=== PATIENT | female | born 1970 | race Hispanic/Latino ===

== ENCOUNTER 2017-10-12 12:54 | Emergency (ER) | payer OTHER ==
[~2017-10-12 12:54] MED LIST: ALBUTEROL0.09 MG/A1 INH; ALEVE220 MG PO; AMOXIL500 MG PO; BACTRIM DS TAB1 EACH PO; FAMVIR 500MG500 MG PO; MEDROL DOSEPAK1 PAC PO; NASONEX0.05 MG/Ac NAS; TRAMADOL50 MG PO; ZANTAC150 MG PO
[2017-10-12 13:44] VITALS: BP 124/91
--- NOTE | 2017-10-12 13:50 | ED SKIN/ALLERGY COMPLAINT ---
History of Present Illness General Chief Complaint: General Adult Stated Complaint: PERSONAL ISSUE, SEEN HERE 10/10 Source: patient, old records Exam Limitations: no limitations Vital Signs & Intake/Output Vital Signs & Intake/Output Vital Signs Date Time Temp Pulse Resp B/P B/P Pulse O2 O2 Flow FiO2 Mean Ox Delivery Rate 10/12 1344 97.6 73 16 124/91 99 Room Air Allergies Coded Allergies: NO KNOWN ALLERGIES (10/12/17) Reconcile Medications Levothyroxine Sodium (Synthroid) 25 MCG TABLET 1 TAB PO DAILY AC THYROID ( Reported) Sulfamethoxazole/Trimethoprim (Bactrim Ds Tablet) 800 MG-160 MG TABLET 1 TAB PO BID cellulitis Triage Note: PT TOLD TO RETURN TO ED FOR WOUND RECHECK TO RIGHT GROIN. REPORTS COMPLIANCE WITH WARM SOAKS AND PO ABTS. DENIES FEVERS/CHILLS Triage Nurses Notes Reviewed? yes Onset: Gradual Duration: day(s): Timing: recent history Severity: moderate Location: genitalia HPI: 47YO FEMALE presents to ED for wound check. Patient seen and evaluated for cellulitis to right groin 2 days ago. She was started on Bactrim and instructed on warm compresses. Patient has been compliant with these instructions. She states redness has improved slightly however does feel a painful bump to her groin area that is persistent. Patient denies fevers, chills, abdominal pain, vomiting. (Evelyn Zambrano) Past History Travel History Traveled to [place] past 21 day No Medical History Any Pertinent Medical History? see below for history Respiratory: asthma Surgical History Surgical History: non-contributory Psychosocial History What is your primary language Nigerien Tobacco Use: Current Not Daily Daily Tobacco Use Amount/Type: =< 4 Cigarettes daily ETOH Use: occasional use Illicit Drug Use: denies illicit drug use Family History Hx Contributory? No (Evelyn Zambrano) Review of Systems Review of Systems Constitutional: Reports: no symptoms. EENTM: Reports: no symptoms. Respiratory: Reports: no symptoms. Cardiovascular: Reports: no symptoms. GI: Reports: no symptoms. Genitourinary: Reports: no symptoms. Musculoskeletal: Reports: no symptoms. Skin: Reports: see HPI. Neurological/Psychological: Reports: no symptoms. Hematologic/Endocrine: Reports: no symptoms. Immunologic/Allergic: Reports: no symptoms. All Other Systems: Reviewed and Negative (Evelyn Zambrano) Physical Exam Physical Exam General Appearance: well developed/nourished, no apparent distress, alert, awake Head: atraumatic, normal appearance Eyes: Bilateral: normal appearance. Ears, Nose, Throat: hearing grossly normal Neck: normal inspection, supple, full range of motion Respiratory: no respiratory distress Gastrointestinal: normal bowel sounds, soft, non-tender, no organomegaly Back: normal inspection, normal range of motion Extremities: normal inspection, normal range of motion Neurologic/Psych: awake, alert, oriented x 3 Skin: 8x4cm area of induration, warmth, erythema with small area of fluctuance (Evelyn Zambrano) Progress Differential Diagnosis: abscess/cellulitis, allergic reaction, contact dermatitis, syphilis/gonococcemia, urticaria Plan of Care: Small wheal placed with lidocaine for anesthesia and a small incision made with 11 blade scalpel. No purulent drainage, only blood was expressed. Patient's area of cellulitis has improved slightly since visit 2 days ago. Will continue antibiotics, warm compresses and initiate topical antibacterial cleanser. Patient to follow-up in 2-3 days for reevaluation of her cellulitis. She will return sooner with any worsening symptoms or concerns. The patient has no systemic symptoms of infection, afebrile, no abdominal pain or vomiting. The patient agrees with the plan of care. (Evelyn Zambrano) Departure Departure Disposition: HOME OR SELF CARE Condition: Stable Clinical Impression Primary Impression: Cellulitis Referrals: Kamini Kessler (PCP/Family) Additional Instructions: Begin Hibiclense topical fur dry cleaner in the shower once daily. Continue oral antibiotics. Continue warm compresses at least twice daily. Return in 2-3 days for wound check. Return sooner with worsening symptoms or concerns. Please note that there might be incidental findings in your evaluation that are unrelated to the current emergency department visit. Please notify your primary care doctor about this emergency department visit in order to obtain and review all of the testing performed so that these incidental findings can be monitored as needed. If you had an x-ray performed, please understand that some fractures may not be seen on the initial set of x-rays. If your symptoms persist you might need a repeat set of x-rays to check for such a fracture. If you had a laceration evaluated, please understand that foreign bodies such as glass or wood may not be visible to the naked eye or on plain x-rays. If the wound becomes red, swollen, increasingly more painful or if there is any drainage from the wound, please have it reevaluated by a physician for the possibility of a retained foreign body. If you're unable to follow up as outlined in the discharge instructions please return to the emergency department. Thank you for choosing the [facility] Emergency Department for your care. It was a pleasure to serve you today. Departure Forms: Customer Survey General Discharge Information (Kay VASQUEZ,Evelyn Murphy) PA/HOP WEIGHER Co-Sign Statement Statement: ED Attending supervision documentation- [] I saw and evaluated the patient. I have also reviewed all the pertinent lab results and diagnostic results. I agree with the findings and the plan of care as documented in the PA's/HOP WEIGHER's documentation. [x] I have reviewed the ED Record and agree with the PA's/HOP WEIGHER's documentation. [] Additions or exceptions (if any) to the PAs/HOP WEIGHER's note and plan are summarized below: [] (Mingo Garcia DO
[2017-10-12] MEDS ORDERED: SYNTHROID25 MCG PO (14:10)
== END 2017-10-12 14:23 ==
LOC: ERH 12:54
DX: Z48.00 Encounter for change or removal of nonsurgical wound dressing (principal)
CPT/HCPCS: J2001

== ENCOUNTER 2017-10-15 12:49 | Inpatient (IN) | payer OTHER ==
[~2017-10-15] VITALS: Ht 149.9 cm; Wt 62.6 kg
[~2017-10-15 12:49] MED LIST changes: +SYNTHROID25 MCG PO
--- NOTE | 2017-10-15 18:57 | ED SKIN/ALLERGY COMPLAINT ---
History of Present Illness General Chief Complaint: General Adult Stated Complaint: "ASKED TO COME BACK THURSDAY TO FINISH" Source: patient, old records Exam Limitations: no limitations Vital Signs & Intake/Output Vital Signs & Intake/Output Vital Signs Date Time Temp Pulse Resp B/P B/P Pulse O2 O2 Flow FiO2 Mean Ox Delivery Rate 10/19 0646 97.9 71 20 112/70 97 10/18 2149 98.1 62 18 108/78 97 Room Air 10/18 1514 98.1 63 18 116/74 99 Room Air ED Intake and Output 10/19 0000 10/18 1200 Intake Total 1250 500 Output Total Balance 1250 500 Intake, IV 450 Intake, Oral 800 500 Allergies Coded Allergies: levothyroxine (HIVES, ITCHING 10/15/17) Reconcile Medications Albuterol Sulfate (Proair Hfa) 90 MCG HFA.AER.AD 2 PUF INH AD PRN RESP. ( Reported) Budesonide/Formoterol Fumarate (Symbicort 160-4.5 Mcg Inhaler) 160 MCG-4.5 MCG/ ACTUATION HFA.AER.AD 2 PUF INH BID RESP. (Reported) Cetirizine HCl 10 MG TABLET 1 TAB PO QHS PRN ALLERGIES (Reported) Chlorhexidine Gluconate (Periogard) (Unknown Strength) MOUTHWASH (Unknown Dose ) PO 4XDAILY ABD (Reported) Fluticasone Propionate 50 MCG/ACTUATION SPRAY.SUSP 1 SPRAY NASB PRN ALLERGIES (Reported) Ibuprofen 600 MG TABLET 1 TAB PO TID PRN PAIN/INFLAMMATION (Reported) with food Levothyroxine Sodium (Synthroid) 25 MCG TABLET 1 TAB PO DAILY AC THYROID ( Reported) Selenium Sulfide 2.5 % SHAMPOO 1 PATRICIA TOP PRN SCALP (Reported) Sulfamethoxazole/Trimethoprim (Bactrim Ds Tablet) 800 MG-160 MG TABLET 1 TAB PO BID cellulitis Triage Note: PT TO ED FOR WOUND CHECK TO RIGHT GROIN AREA. PT HAS SEEN CHRISTINA EPPS THE LAST 2 TIMES, PT WOULD LIKE TO SEE HER AGAIN. Triage Nurses Notes Reviewed? yes Onset: Gradual Duration: day(s): Timing: recent history Severity: moderate Location: genitalia HPI: 47-year-old female presents emergency department for reevaluation of cellulitis to groin. Patient has been taking antibiotics as prescribed, she has been using warm compresses as instructed. Patient reports persistent pain, erythema since previous evaluation 3 days ago. Patient reports there is a small area of drainage as well. Patient believes erythema has worsened since previous visit. The patient denies abdominal pain, fevers, chills, nausea, vomiting. (Evelyn Zambrano) Past History Travel History Traveled to [place] past 21 day No Medical History Any Pertinent Medical History? see below for history Respiratory: asthma Endocrine: hypothyroidism Surgical History Surgical History: non-contributory Psychosocial History What is your primary language Upper Sorbian Tobacco Use: Current Not Daily ETOH Use: denies use Illicit Drug Use: denies illicit drug use Family History Hx Contributory? No (Evelyn Zambrano) Review of Systems Review of Systems Constitutional: Reports: no symptoms. EENTM: Reports: no symptoms. Respiratory: Reports: no symptoms. Cardiovascular: Reports: no symptoms. GI: Reports: no symptoms. Genitourinary: Reports: no symptoms. Musculoskeletal: Reports: no symptoms. Skin: Reports: see HPI. Neurological/Psychological: Reports: no symptoms. Hematologic/Endocrine: Reports: no symptoms. Immunologic/Allergic: Reports: no symptoms. All Other Systems: Reviewed and Negative (Evelyn Zambrano) Physical Exam Physical Exam General Appearance: well developed/nourished, no apparent distress, alert, awake Head: atraumatic, normal appearance Eyes: Bilateral: normal appearance. Ears, Nose, Throat: hearing grossly normal Neck: normal inspection, supple, full range of motion Respiratory: normal breath sounds, no respiratory distress, lungs clear Cardiovascular: regular rate/rhythm Gastrointestinal: normal bowel sounds, soft, non-tender, no organomegaly Back: normal inspection, normal range of motion Extremities: normal inspection, normal range of motion Neurologic/Psych: awake, alert, oriented x 3 Skin: 7x12cm area of erythema, warmth, tenderness, and induration to mons pubis area, mild purulent drainage present (Evelyn Zambrano) Progress Differential Diagnosis: abscess/cellulitis, anaphylaxis, contact dermatitis, shingles, urticaria Plan of Care: Orders Procedure Date/time Status COMPREHENSIVE METABOLIC PANEL 10/19 599 Active CBC WITHOUT DIFFERENTIAL 10/19 599 Active MISSING MEDICATION FORM 10/18 UNK Active Current Medications Sig/Maxine Start time Last Medication Dose Stop Time Status Admin Vancomycin HCl 1,250 MG BID 10/18 2200 AC 10/18 Dextrose/Water 250 ML 2138 (D5W) Amoxicillin/ 875 MG Q12 10/18 1538 AC 10/18 Clavulanate Potassium 2138 (Augmentin) Acetaminophen 1,000 MG Q6P PRN 10/17 1445 AC (Ofirmev) N/A 1 UNIT (No Carrier) Ondansetron HCl 4 MG Q6P PRN 10/16 1930 AC 10/17 (Zofran) 1156 Budesonide/ 2 PUF BID 10/16 1000 AC 10/18 Formoterol Fumarate 2139 (Symbicort) Nicotine 7 MG DAILY 10/16 1000 AC (Nicotine Cq) Levothyroxine Sodium 0.025 MG DAILY AC 10/16 0700 AC 10/19 (Synthroid) 0606 Heparin Sodium 5,000 UNIT Q8 10/16 0600 AC 10/19 (Porcine) 0606 Acetaminophen 650 MG Q6P PRN 10/16 0230 AC (Tylenol) Ibuprofen 600 MG Q6P PRN 10/16 0230 AC (Motrin) Laboratory Tests 10/19/17 0658: Sodium Pending, Potassium Pending, Chloride Pending, Carbon Dioxide Pending, Anion Gap Pending, BUN Pending, Creatinine Pending, BUN/Creatinine Ratio Pending , Glucose Pending, Calcium Pending, Total Bilirubin Pending, AST Pending, ALT Pending, Alkaline Phosphatase Pending, Total Protein Pending, Albumin Pending, Globulin Pending, Albumin/Globulin Ratio Pending, CBC w Diff Pending, WBC Pending, RBC Pending, Hgb Pending, Hct Pending, MCV Pending, MCH Pending, MCHC Pending, RDW Pending, Plt Count Pending, MPV Pending 10/18/17 0850: Vancomycin Trough 7.6 L This is the patient's third visit with worsening cellulitis. I started patient on Bactrim antibiotics 5 days ago. Patient returned and I &D was attempted 3 days ago without drainage of purulent material, only blood was drained. Patient cellulitis appears worse today. This patient has failed outpatient antibiotic therapy for her cellulitis. I discussed this patient with hospitalist Dr. Pravin cool general medicine admission for IV antibiotics given an cellulitis, possible general surgery consult, possible ID consult, premature discharge would be medically unsafe. Diagnostic Imaging: Viewed by Me: CT Scan. Discussed w/RAD: CT Scan. Radiology Impression: PATIENT: MARISSA GAMINO PRESENT AGE: 47 PATIENT ACCOUNT NO: [id number] : 68 LOCATION: [facility] ORDERING PHYSICIAN: Evelyn VASQUEZ SERVICE DATE: 10/15/17 EXAM TYPE: CAT - CT PELVIS W IV CONTRAST EXAMINATION: CT PELVIS WITH IV CONTRAST CLINICAL INFORMATION: Cellulitis of groin. COMPARISON: None TECHNIQUE: Helical scanning was performed with submillimeter collimation through the pelvis with 95 mL of Optiray 320 intravenous contrast. Sagittal and coronal multiplanar 2-D reconstructions were obtained. DLP: 201.35 mGy-cm FINDINGS: PELVIS: There is edema and thickening in the skin at the central lower pelvis. No abscess. No focal fluid collection. No air in the soft tissue. No intrapelvic abnormality. The abdominal muscle is normal. The visualized bowel loops are unremarkable. The appendix is normal. The uterus is anteverted. Hypodensity in the right adnexa right ovarian follicle or cyst measuring 3.7 x 2 x 2.3 cm. OSSEOUS STRUCTURES: Vacuum disc phenomenon L5-S1 with endplate spurring of the vertebrae. IMPRESSION : 1. Edema and skin thickening at the central anterior lower pelvis. No abscess. DICTATED BY: River Max MD DATE/TIME DICTATED:10/15/172302 BUILDING OPERATOR :TEGAN DATE/TIME TRANSCRIBED:10/15/172302 CONFIDENTIAL, DO NOT COPY WITHOUT APPROPRIATE AUTHORIZATION. <Electronically signed in Other Vendor System> SIGNED BY: River Max MD 10/15/17 0043 (Evelyn Zambrano) Departure Departure Disposition: STILL A PATIENT Condition: Stable Clinical Impression Primary Impression: Cellulitis Referrals: Kamini Kessler (PCP/Family) Departure Forms: Customer Survey General Discharge Information Admission Note Spoke With: Olman Garcia MD Documentation of Exam: Documentation of any treatments & extenuating circumstances including Concerns Regarding Discharge (functional status, medication knowledge or non-compliance, living conditions, etc.) that warrant an admission rather than observation: [ Cellulitis with failed outpatient antibiotic therapy, this patient requires IV antibiotics, possible ID consult, blood cultures, repeat labs, premature discharge could be medically unsafe] (Evelyn Zambrano) PA/APARTMENT COMMUNITY MANAGER Co-Sign Statement Statement: ED Attending supervision documentation- x I saw and evaluated the patient. I have also reviewed all the pertinent lab results and diagnostic results. I agree with the findings and the plan of care as documented in the PA's/APARTMENT COMMUNITY MANAGER's documentation. Failed outpatient antibiotic therapy [] I have reviewed the ED Record and agree with the PA's/APARTMENT COMMUNITY MANAGER's documentation. [] Additions or exceptions (if any) to the PAs/APARTMENT COMMUNITY MANAGER's note and plan are summarized below: [] (Brendon MITCHELL,Hesham) 10/15 2006 BLOOD: Blood Culture - RES 10/15 2006 BLOOD: Blood Culture - RES This is the patient's third visit with worsening cellulitis. I started patient on Bactrim antibiotics 5 days ago. Patient returned and I &D was attempted 3 days ago without drainage of purulent material, only blood was drained. Patient cellulitis appears worse today. This patient has failed outpatient antibiotic therapy for her cellulitis. I discussed this patient with hospitalist Dr. Pravin cool general medicine admission for IV antibiotics given an cellulitis, possible general surgery consult, possible ID consult, premature discharge would be medically unsafe. Diagnostic Imaging: Viewed by Me: CT Scan. Discussed w/RAD: CT Scan. Radiology Impression: PATIENT: MARISSA GAMINO PRESENT AGE: 47 PATIENT ACCOUNT NO: [id number] : 68 LOCATION: [facility] ORDERING PHYSICIAN: Evelyn VASQUEZ SERVICE DATE: 10/15/17 EXAM TYPE: CAT - CT PELVIS W IV CONTRAST EXAMINATION: CT PELVIS WITH IV CONTRAST CLINICAL INFORMATION: Cellulitis of groin. COMPARISON: None TECHNIQUE: Helical scanning was performed with submillimeter collimation through the pelvis with 95 mL of Optiray 320 intravenous contrast. Sagittal and coronal multiplanar 2-D reconstructions were obtained. DLP: 201.35 mGy-cm FINDINGS: PELVIS: There is edema and thickening in the skin at the central lower pelvis. No abscess. No focal fluid collection. No air in the soft tissue. No intrapelvic abnormality. The abdominal muscle is normal. The visualized bowel loops are unremarkable. The appendix is normal. The uterus is anteverted. Hypodensity in the right adnexa right ovarian follicle or cyst measuring 3.7 x 2 x 2.3 cm. OSSEOUS STRUCTURES: Vacuum disc phenomenon L5-S1 with endplate spurring of the vertebrae. IMPRESSION : 1. Edema and skin thickening at the central anterior lower pelvis. No abscess. DICTATED BY: River Max MD DATE/TIME DICTATED:10/15/172302 BUILDING OPERATOR :TEGAN DATE/TIME TRANSCRIBED:10/15/172302 CONFIDENTIAL, DO NOT COPY WITHOUT APPROPRIATE AUTHORIZATION. <Electronically signed in Other Vendor System> SIGNED BY: River Max MD 10/15/172312 Departure Departure Disposition: STILL A PATIENT Condition: Stable Clinical Impression Primary Impression: Cellulitis Referrals: Kamini Kessler (PCP/Family) Departure Forms: Customer Survey General Discharge Information Admission Note Spoke With: Jose MITCHELL,Olman Documentation of Exam: Documentation of any treatments & extenuating circumstances including Concerns Regarding Discharge (functional status, medication knowledge or non-compliance, living conditions, etc.) that warrant an admission rather than observation: [ Cellulitis with failed outpatient antibiotic therapy, this patient requires IV antibiotics, possible ID consult, blood cultures, repeat labs, premature discharge could be medically unsafe]
[2017-10-15] MEDS ORDERED: CETIRIZINE HCL10 M2 PO (19:52)
[2017-10-15] MEDS ORDERED: IBUPROFEN600 M1 PO (19:53)
[2017-10-15] MEDS ORDERED: FLUTICASONE PRO16 GM NASB (19:54)
[2017-10-15] MEDS ORDERED: SYMBICORT 16010.2 GM INH (19:54)
[2017-10-15] MEDS ORDERED: SELENIUM SULFI120 M1 TOP (19:55)
[2017-10-15] MEDS ORDERED: PROAIR HFA8.5 GM INH (19:55)
[2017-10-15] MEDS ORDERED: PERIOGARD473 ML PO (19:56)
[2017-10-15 20:31] LABS: ABSOLUTE BASOPHIL COUNT 0 /CUMM (0.0-0.2); ABSOLUTE EOSINOPHIL COUNT 0.1 /CUMM (0.0-0.7); ABSOLUTE GRANULOCYTE CT 4.9 /CUMM (1.4-6.5); ABSOLUTE LYMPH COUNT 2.4 /CUMM (1.2-3.4); ABSOLUTE MONOCYTE COUNT 0.6 /CUMM (0.10-0.60); BASOPHIL % 0.3 % (0.0-2.0); EOSINOPHIL % 1.9 % (0-5); GRANULOCYTE % 60.3 % (42.2-75.2); HEMATOCRIT 42.1 % (37-47); MEAN CORPUSCULAR HGB 30.9 PG (27.0-31.0); MEAN CORPUSCULAR HGB CONC 33.5 G/DL (33.0-37.0); MEAN CORPUSCULAR VOLUME 92.3 FL (81.0-99.0); MEAN PLATELET VOLUME 7.4 FL (7.4-10.4); PLATELET COUNT 360 /CUMM (130-400); RBC DISTRIBUTION WIDTH 14.3 % (11.5-14.5); RED BLOOD CELL CT 4.57 /CUMM (4.20-5.40); WHITE BLOOD CELL COUNT 8.1 /CUMM (4.8-10.8)
--- NOTE | 2017-10-15 23:13 | CT SCAN REPORT ---
EXAMINATION: CT PELVIS WITH IV CONTRAST CLINICAL INFORMATION: Cellulitis of groin. COMPARISON: None TECHNIQUE: Helical scanning was performed with submillimeter collimation through the pelvis with 95 mL of Optiray 320 intravenous contrast. Sagittal and coronal multiplanar 2-D reconstructions were obtained. DLP: 201.35 mGy-cm FINDINGS: PELVIS: There is edema and thickening in the skin at the central lower pelvis. No abscess. No focal fluid collection. No air in the soft tissue. No intrapelvic abnormality. The abdominal muscle is normal. The visualized bowel loops are unremarkable. The appendix is normal. The uterus is anteverted. Hypodensity in the right adnexa right ovarian follicle or cyst measuring 3.7 x 2 x 2.3 cm. OSSEOUS STRUCTURES: Vacuum disc phenomenon L5-S1 with endplate spurring of the vertebrae. IMPRESSION: 1. Edema and skin thickening at the central anterior lower pelvis. No abscess.
--- NOTE | 2017-10-16 03:39 | History & Physical ---
Nick Cyr 10/16/17 0339: General Information and HPI MD Statement: I have seen and personally examined MARISSA GAMINO and documented this H&P. The patient is a 47 year old F who presented with a patient stated chief complaint of [cellulitis]. Source of Information: patient, old records Exam Limitations: no limitations History of Present Illness: This is 47-year-old female with a medical history of asthma, hypothyroidism. Presented to the emergency department for further evaluation for her right pubic area cellulitis/abscess. Patient stated that 2 days before her first presentation to the emergency department on 10/10/2017 she shaved her pubic area and after that by 2 days she noticed redness Swelling and redness has been gradually increasing in that area and become very painful, worse when she walks or worse tight clothing. She was prescribed Bactrim. Patient retained to the emergency department 2 days after that for further evaluation as the lesion did not significantly improve and she was still complaining of pain I&D was attempted at that time and only bloody discharge coming out. She was discharged home to continue her antibiotic with warm compresses and topical antibacterial. The patient came back today as persistent pain with erythema. Patient reports there is a small area of drainage as well. She believes erythema has worsened since her previous visit to the emergency department. Patient also reports multiple episodes of diarrhea after she started taking the Bactrim that is now resolved, she also takes fluconazole for vaginitis. The patient denies abdominal pain, fevers, chills, nausea, vomiting, constipation, shortness breath, chest pain, heart racing, headaches, hematuria, dysuria, vaginal discharge. In the ED patient was started on IV vancomycin, IV Unasyn CT scan was done to evaluate for any underlying abscess and showed edema and skin thickening without any signs of abscess. Allergies/Medications Allergies: Coded Allergies: levothyroxine (HIVES, ITCHING 10/15/17) Home Med list Albuterol Sulfate (Proair Hfa) 90 MCG HFA.AER.AD 2 PUF INH AD PRN RESP. ( Reported) Budesonide/Formoterol Fumarate (Symbicort 160-4.5 Mcg Inhaler) 160 MCG-4.5 MCG/ ACTUATION HFA.AER.AD 2 PUF INH BID RESP. (Reported) Cetirizine HCl 10 MG TABLET 1 TAB PO QHS PRN ALLERGIES (Reported) Chlorhexidine Gluconate (Periogard) (Unknown Strength) MOUTHWASH (Unknown Dose ) PO 4XDAILY ABD (Reported) Fluticasone Propionate 50 MCG/ACTUATION SPRAY.SUSP 1 SPRAY NASB PRN ALLERGIES (Reported) Ibuprofen 600 MG TABLET 1 TAB PO TID PRN PAIN/INFLAMMATION (Reported) with food Levothyroxine Sodium (Synthroid) 25 MCG TABLET 1 TAB PO DAILY AC THYROID ( Reported) Selenium Sulfide 2.5 % SHAMPOO 1 PATRICIA TOP PRN SCALP (Reported) Sulfamethoxazole/Trimethoprim (Bactrim Ds Tablet) 800 MG-160 MG TABLET 1 TAB PO BID cellulitis Past History Travel History Traveled to [place] past 21 day No Medical History Blood Transfusion Hx: No Neurological: NONE EENT: NONE Cardiovascular: NONE Respiratory: asthma Gastrointestinal: NONE Hepatic: NONE Renal: NONE Musculoskeletal: NONE Psychiatric: NONE Endocrine: hypothyroidism Blood Disorders: NONE Cancer(s): NONE 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 BROTHER (Diabetes). . Psychosocial History Where do you live? Home Smoking Status: Current Some Day Smoker ETOH Use: denies use Illicit Drug Use: denies illicit drug use Functional Ability ADLs Independent: dressing, eating, toileting, bathing. Ambulation: independent IADLs Independent: shopping, housework, finances, food prep, telephone, transportation , medication admin. Review of Systems Review of Systems Constitutional: Reports: see HPI. Cardiovascular: Reports: see HPI. Respiratory: Reports: see HPI. GI: Reports: see HPI. Genitourinary: Reports: see HPI. Skin: Reports: see HPI. Exam & Diagnostic Data Last 24 Hrs of Vital Signs/I&O Vital Signs Date Time Temp Pulse Resp B/P B/P Pulse O2 O2 Flow FiO2 Mean Ox Delivery Rate 10/16 0044 98.7 69 18 114/69 100 10/15 2219 97.8 92 18 116/78 99 Room Air 10/15 1954 99.2 68 20 114/62 98 10/15 1255 96.7 80 20 104/70 98 Room Air Intake & Output 10/16 0800 10/16 0000 10/15 1600 Intake Total 0 Output Total Balance 0 Intake, Oral 0 Patient 138 lb 138 lb Weight Weight Reported by Patient Reported by Patient Measurement Method Physical Exam General Appearance Alert, Oriented X3, Cooperative, No Acute Distress Skin 1" x 2" erythema skin pump noted on the right pubic area, tender to touch, bbloody discharge noted, questionable pus HEENT PERRLA, EOMI Cardiovascular Regular Rate, Normal S1, Normal S2 Lungs Clear to Auscultation, Normal Air Movement Abdomen Normal Bowel Sounds, Soft, No Tenderness Extremities No Cyanosis, No Edema Last 24 Hrs of Labs/Matt: Laboratory Tests 10/15/172029: Urine Color YEL, Urine Clarity CLEAR, Urine pH 6.0, Ur Specific [place] >= 1.030 , Urine Protein NEG, Urine Ketones NEG, Urine Nitrite NEG, Urine Bilirubin NEG, Urine Urobilinogen 0.2, Ur Leukocyte Esterase NEG, Ur Microscopic SEDIMENT EXAMINED, Urine RBC FEW H, Urine WBC RARE, Ur Epithelial Cells FEW, Urine Bacteria RARE H, Urine Hemoglobin SMALL H, Urine Glucose NEG 10/15/172006: Anion Gap 12, Estimated GFR > 60, BUN/Creatinine Ratio 15.7, Glucose 83, Calcium 10.1, Total Bilirubin 0.5, AST 25, ALT 43, Alkaline Phosphatase 67, Total Protein 8.2, Albumin 4.8, Globulin 3.4, Albumin/Globulin Ratio 1.4, Total Beta HCG NEGATIVE, CBC w Diff NO MAN DIFF REQ, RBC 4.57, MCV 92.3, MCH 30.9, MCHC 33.5, RDW 14.3, MPV 7.4, Gran % 60.3, Lymphocytes % 30.0, Monocytes % 7.5, Eosinophils % 1.9, Basophils % 0.3, Absolute Granulocytes 4.9, Absolute Lymphocytes 2.4, Absolute Monocytes 0.6, Absolute Eosinophils 0.1, Absolute Basophils 0 Microbiology 10/15 2006 BLOOD: Blood Culture - RECD 10/15 2006 BLOOD: Blood Culture - RECD Diagnostic Data Other Results EXAMINATION: CT PELVIS WITH IV CONTRAST CLINICAL INFORMATION: Cellulitis of groin. COMPARISON: None TECHNIQUE: Helical scanning was performed with submillimeter collimation through the pelvis with 95 mL of Optiray 320 intravenous contrast. Sagittal and coronal multiplanar 2-D reconstructions were obtained. DLP: 201.35 mGy-cm FINDINGS: PELVIS: There is edema and thickening in the skin at the central lower pelvis. No abscess. No focal fluid collection. No air in the soft tissue. No intrapelvic abnormality. The abdominal muscle is normal. The visualized bowel loops are unremarkable. The appendix is normal. The uterus is anteverted. Hypodensity in the right adnexa right ovarian follicle or cyst measuring 3.7 x 2 x 2.3 cm. OSSEOUS STRUCTURES: Vacuum disc phenomenon L5-S1 with endplate spurring of the vertebrae. IMPRESSION: 1. Edema and skin thickening at the central anterior lower pelvis. No abscess. Assessment/Plan Assessment: This is 47-year-old female with a medical history of asthma, hypothyroidism. Presented to the emergency department for further evaluation for her right pubic area cellulitis/abscess. Problem list: -Right pubic cellulitis/abscess? Plan: -Admit patient to general medicine floor -Vitals every shift -Continue IV vancomycin and IV Unasyn for now -Gen. surgery consultation to assess for I&D's -Continue home medication of levothyroxine, Symbicort -Regular diet -Pain pathway -DVT prophylaxis subcutaneous heparin -Full code. As Ranked By This Provider Problem List: 1. Cellulitis Core Measures/Misc (05/10) Acute Coronary Syndrome ACS Diagnosis: No Congestive Heart Failure Congestive Heart Failure Diagnosis No Cerebrovascular Accident CVA/TIA Diagnosis: No VTE (View Protocol) VTE Risk Factors Acute Medical Illness No Mechanical VTE Prophylaxis d/t N/A MechProphylax Ordered No VTE Pharm Prophylaxis d/t NA PharmProphylax ordered Sepsis (View protocol) Sepsis Present: No Jose MITCHELL, [facility] 10/16/17 0357: Attending MD Review Statement Attending Statement Attending MD Statement: examined this patient, discuss w/resident/PA/NURSING SERVICES MANAGER, agreed w/resident/PA/NURSING SERVICES MANAGER, reviewed images, amended to note Attending Assessment/Plan: 47 yo F with h/o asthma, hypothyroidism, prediabetes, current smoker, was initially seen in ER on Oct 10 for is here for cellulitis of the pubic area and was prescribed Bactrim. She reports this probably started off from an ingrown hair during to her shaving her private area. She returned for evaluation on Oct 12, an I and D was done with only blood expressed. She was asked to continue antibiotics and warm compresses. However, her symptoms did not get better, erythema, swelling and pain worsened. She denies fever/ chills. She reports diarrhea while using bactrim and is also on fluconazole for vaginal yeast infection. Vitals stable. Right pubic area with diffuse erythema and focal swelling, very tender with bloody ?purulent discharge. Labs unremarkable. CT pelvis: edema and skin thickening at central anterior lower pelvis but no abscess. EKG: sinus rhythm, inferior ST changes. Assessment and plan: 1. Cellulitis with possible abscess of pubic/suprapubic area 2. Failed outpatient therapy 3. History of asthma and hypothyroidism 4. Prediabetes - Admit to General medicine - Panculture - IV Unasyn and Elenao for now - Surgery consult for possible I and D - Pain management with motrin, Percocet and IV morphine PRN - Smoking cessation counseling, nicotine patch - Resume home meds DVT ppx Lovenox. Full code.
--- NOTE | 2017-10-16 03:58 | Admission Certification ---
Admission Certification Certification Statement - As attending physician, I certify that at the time of - admission, based on clinical presentation, severity of - symptoms, need for further diagnostic testing and - therapeutic interventions, and risk of adverse outcomes - without in-hospital treatment, in my clinical assessment, - this patient requires an acute hospital stay for a minimum - of two nights or longer. I have also considered psychsocial - factors such as support system, advanced age, financial - issues, cognitive issues, and failed out-patient treatments, - past re-admission history, safety of patient, and lack of - compliance as applicable. Specific rationale supporting this admission is: Cellulitis with possible abscess of the pubic/suprapubic area, failed outpatient therapy.
--- NOTE | 2017-10-16 11:10 | Cons- General Surgery ---
General Information and HPI Consulting Request Date of Consult: 10/16/17 Requested By: Ninfa Whitten MD Reason for Consult: cellulitis with abscess History of Present Illness: Patient presents with first episode of severe folliculitis. She states this is her third visit to the ER for the same process. It has failed outpatient treatment with oral antibiotics. She notes the onset of pain and swelling a few days ago. There is been intermittent drainage. It is exquisitely tender. No fevers chills or sweats. Allergies/Medications Allergies: Coded Allergies: levothyroxine (HIVES, ITCHING 10/15/17) Home Med List: Albuterol Sulfate (Proair Hfa) 90 MCG HFA.AER.AD 2 PUF INH AD PRN RESP. ( Reported) Budesonide/Formoterol Fumarate (Symbicort 160-4.5 Mcg Inhaler) 160 MCG-4.5 MCG/ ACTUATION HFA.AER.AD 2 PUF INH BID RESP. (Reported) Cetirizine HCl 10 MG TABLET 1 TAB PO QHS PRN ALLERGIES (Reported) Chlorhexidine Gluconate (Periogard) (Unknown Strength) MOUTHWASH (Unknown Dose ) PO 4XDAILY ABD (Reported) Fluticasone Propionate 50 MCG/ACTUATION SPRAY.SUSP 1 SPRAY NASB PRN ALLERGIES (Reported) Ibuprofen 600 MG TABLET 1 TAB PO TID PRN PAIN/INFLAMMATION (Reported) with food Levothyroxine Sodium (Synthroid) 25 MCG TABLET 1 TAB PO DAILY AC THYROID ( Reported) Selenium Sulfide 2.5 % SHAMPOO 1 PATRICIA TOP PRN SCALP (Reported) Sulfamethoxazole/Trimethoprim (Bactrim Ds Tablet) 800 MG-160 MG TABLET 1 TAB PO BID cellulitis Past History Medical History Blood Transfusion Hx: No Neurological: NONE EENT: NONE Cardiovascular: NONE Respiratory: asthma Gastrointestinal: NONE Hepatic: NONE Renal: NONE Musculoskeletal: NONE Psychiatric: NONE Endocrine: hypothyroidism Blood Disorders: NONE Cancer(s): NONE 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 BROTHER (Diabetes). . Psychosocial History Where Do You Live? Home Smoking Status: Current Some Day Smoker ETOH Use: denies use Illicit Drug Use: denies illicit drug use Functional Ability ADLs Independent: dressing, eating, toileting, bathing. Ambulation: independent IADLs Independent: shopping, housework, finances, food prep, telephone, transportation , medication admin. Review of Systems Review of Systems: No fevers chills or sweats. No dyspnea no chest pain no abdominal pain remainder 12 points negative Exam & Diagnostic Data Vital Signs and I&O Vital Signs Date Time Temp Pulse Resp B/P B/P Pulse O2 O2 Flow FiO2 Mean Ox Delivery Rate 10/16 0637 98.7 86 18 106/63 100 10/16 0044 98.7 69 18 114/69 100 10/15 2219 97.8 92 18 116/78 99 Room Air 10/15 1954 99.2 68 20 114/62 98 10/15 1255 96.7 80 20 104/70 98 Room Air Intake & Output 10/16 1600 10/16 0800 10/16 0000 10/15 1600 10/15 0800 10/15 0000 Intake Total 842 0 Output Total Balance 842 0 Intake, IV 370 Intake, Oral 472 0 Patient 138 lb 138 lb Weight Weight Reported by Patient Reported by Patient Measurement Method Physical Exam: Gen.: She is normal body habitus ox her stated age no distress HEENT: Anicteric PERRL EOMI Abdomen: Soft nontender nondistended healed low midline scar without hernia In the suprapubic region there is erythema and induration. There is a 2 cm area of exophytic swelling and central fluctuance. Last 24 Hours of Labs: Laboratory Tests 10/15 Chemistry Sodium (137 - 145 mmol/L) 138 Potassium (3.5 - 5.1 mmol/L) 4.2 Chloride (98 - 107 mmol/L) 102 Carbon Dioxide (22 - 30 mmol/L) 24 Anion Gap (5 - 16) 12 BUN (7 - 17 mg/dL) 11 Creatinine (0.5 - 1.0 mg/dL) 0.7 Estimated GFR (>60 ml/min) > 60 BUN/Creatinine Ratio (7 - 25 %) 15.7 Glucose (65 - 99 mg/dL) 83 Calcium (8.4 - 10.2 mg/dL) 10.1 Total Bilirubin (0.2 - 1.3 mg/dL) 0.5 AST (14 - 36 U/L) 25 ALT (9 - 52 U/L) 43 Alkaline Phosphatase (<127 U/L) 67 Total Protein (6.3 - 8.2 g/dL) 8.2 Albumin (3.5 - 5.0 g/dL) 4.8 Globulin (1.9 - 4.2 gm/dL) 3.4 Albumin/Globulin Ratio (1.1 - 2.2 %) 1.4 Total Beta HCG (NEGATIVE) NEGATIVE Hematology CBC w Diff NO MAN DIFF REQ WBC (4.8 - 10.8 /CUMM) 8.1 RBC (4.20 - 5.40 /CUMM) 4.57 Hgb (12.0 - 16.0 G/DL) 14.1 Hct (37 - 47 %) 42.1 MCV (81.0 - 99.0 FL) 92.3 MCH (27.0 - 31.0 PG) 30.9 MCHC (33.0 - 37.0 G/DL) 33.5 RDW (11.5 - 14.5 %) 14.3 Plt Count (130 - 400 /CUMM) 360 MPV (7.4 - 10.4 FL) 7.4 Gran % (42.2 - 75.2 %) 60.3 Lymphocytes % (20.5 - 51.1 %) 30.0 Monocytes % (1.7 - 9.3 %) 7.5 Eosinophils % (0 - 5 %) 1.9 Basophils % (0.0 - 2.0 %) 0.3 Absolute Granulocytes (1.4 - 6.5 /CUMM) 4.9 Absolute Lymphocytes (1.2 - 3.4 /CUMM) 2.4 Absolute Monocytes (0.10 - 0.60 /CUMM) 0.6 Absolute Eosinophils (0.0 - 0.7 /CUMM) 0.1 Absolute Basophils (0.0 - 0.2 /CUMM) 0 Urines Urine Color (YEL,AMB,STR) YEL Urine Clarity (CLEAR) CLEAR Urine pH (5.0 - 8.0) 6.0 Ur Specific [place] (1.001 - 1.035) >= 1.030 Urine Protein (NEG,<30 MG/DL) NEG Urine Ketones (NEG) NEG Urine Nitrite (NEG) NEG Urine Bilirubin (NEG) NEG Urine Urobilinogen (0.1 - 1.0 EU/dl) 0.2 Ur Leukocyte Esterase (NEG) NEG Ur Microscopic SEDIMENT EXAMINED Urine RBC (0 - 5 /HPF) FEW H Urine WBC (0 - 2 /HPF) RARE Ur Epithelial Cells (NONE,FEW) FEW Urine Bacteria (NEG/NONE) RARE H Urine Hemoglobin (NEG) SMALL H Urine Glucose (N MG/DL) NEG Imaging Results: CT scan of the pelvis was personally reviewed. The images show no deep abscess Assessment/Plan Assessment/Plan 47-year-old woman with cellulitis and abscess related to folliculitis. Although the CT scan does not show a deep abscess there is clearly superficial one on the skin on examination. It will require incision and drainage at the bedside. Consult Acknowledgment - Thank you for your consult request.
--- NOTE | 2017-10-16 11:47 | PN- Att Addend ---
Attending Addendum Attending Brief Note Patient seen/examined bedside. Surgery consult noted, plan for incison and drainage, consider ID consult, failed o/p bactrim. Cont plan of care as per admitting physician. PE remarakble for erythema and induration in suprapubic area with swelling and likely from folliculitis. Admission Lab Results I reviewed the following labs: Laboratory Tests 10/15 Chemistry Sodium (137 - 145 mmol/L) 138 Potassium (3.5 - 5.1 mmol/L) 4.2 Chloride (98 - 107 mmol/L) 102 Carbon Dioxide (22 - 30 mmol/L) 24 Anion Gap (5 - 16) 12 BUN (7 - 17 mg/dL) 11 Creatinine (0.5 - 1.0 mg/dL) 0.7 Estimated GFR (>60 ml/min) > 60 BUN/Creatinine Ratio (7 - 25 %) 15.7 Glucose (65 - 99 mg/dL) 83 Calcium (8.4 - 10.2 mg/dL) 10.1 Total Bilirubin (0.2 - 1.3 mg/dL) 0.5 AST (14 - 36 U/L) 25 ALT (9 - 52 U/L) 43 Alkaline Phosphatase (<127 U/L) 67 Total Protein (6.3 - 8.2 g/dL) 8.2 Albumin (3.5 - 5.0 g/dL) 4.8 Globulin (1.9 - 4.2 gm/dL) 3.4 Albumin/Globulin Ratio (1.1 - 2.2 %) 1.4 Total Beta HCG (NEGATIVE) NEGATIVE Hematology CBC w Diff NO MAN DIFF REQ WBC (4.8 - 10.8 /CUMM) 8.1 RBC (4.20 - 5.40 /CUMM) 4.57 Hgb (12.0 - 16.0 G/DL) 14.1 Hct (37 - 47 %) 42.1 MCV (81.0 - 99.0 FL) 92.3 MCH (27.0 - 31.0 PG) 30.9 MCHC (33.0 - 37.0 G/DL) 33.5 RDW (11.5 - 14.5 %) 14.3 Plt Count (130 - 400 /CUMM) 360 MPV (7.4 - 10.4 FL) 7.4 Gran % (42.2 - 75.2 %) 60.3 Lymphocytes % (20.5 - 51.1 %) 30.0 Monocytes % (1.7 - 9.3 %) 7.5 Eosinophils % (0 - 5 %) 1.9 Basophils % (0.0 - 2.0 %) 0.3 Absolute Granulocytes (1.4 - 6.5 /CUMM) 4.9 Absolute Lymphocytes (1.2 - 3.4 /CUMM) 2.4 Absolute Monocytes (0.10 - 0.60 /CUMM) 0.6 Absolute Eosinophils (0.0 - 0.7 /CUMM) 0.1 Absolute Basophils (0.0 - 0.2 /CUMM) 0 Urines Urine Color (YEL,AMB,STR) YEL Urine Clarity (CLEAR) CLEAR Urine pH (5.0 - 8.0) 6.0 Ur Specific [place] (1.001 - 1.035) >= 1.030 Urine Protein (NEG,<30 MG/DL) NEG Urine Ketones (NEG) NEG Urine Nitrite (NEG) NEG Urine Bilirubin (NEG) NEG Urine Urobilinogen (0.1 - 1.0 EU/dl) 0.2 Ur Leukocyte Esterase (NEG) NEG Ur Microscopic SEDIMENT EXAMINED Urine RBC (0 - 5 /HPF) FEW H Urine WBC (0 - 2 /HPF) RARE Ur Epithelial Cells (NONE,FEW) FEW Urine Bacteria (NEG/NONE) RARE H Urine Hemoglobin (NEG) SMALL H Urine Glucose (N MG/DL) NEG
--- NOTE | 2017-10-16 15:05 | Cons- Infect Disease ---
General Information and HPI Consulting Request Date of Consult: 10/16/17 Requested By: Ninfa Whitten MD Reason for Consult: Suprapubic cellulitis/abscess Source of Information: patient, old records History of Present Illness: This is a 47-year-old woman with a history of asthma, hypothyroidism and a previous right back abscess, treated at [facility], seen in the emergency room 5 days prior to admission with a suprapubic cellulitis, found to be afebrile and discharged on Bactrim, seen 2 days later with persistent discomfort, again afebrile, with an attempt at an I&D unsuccessful, admitted on October 15 after returning to the emergency room with persistent pain and drainage. On admission she was afebrile. Laboratory data revealed a white blood cell count of 8000, BUN/creatinine 11 and 0.7, with normal liver enzymes. Urinalysis few RBCs/rare WBCs. CT of the pelvis revealed edema and skin thickening with no abscess. She was begun on Vancomycin and Unasyn and has remained afebrile since admission. She has been evaluated by Surgery, who plans to do an I&D at the bedside. At present she reports significant discomfort in the suprapubic area. Allergies/Medications Allergies: Coded Allergies: levothyroxine (HIVES, ITCHING 10/15/17) Home Med List: Albuterol Sulfate (Proair Hfa) 90 MCG HFA.AER.AD 2 PUF INH AD PRN RESP. ( Reported) Budesonide/Formoterol Fumarate (Symbicort 160-4.5 Mcg Inhaler) 160 MCG-4.5 MCG/ ACTUATION HFA.AER.AD 2 PUF INH BID RESP. (Reported) Cetirizine HCl 10 MG TABLET 1 TAB PO QHS PRN ALLERGIES (Reported) Chlorhexidine Gluconate (Periogard) (Unknown Strength) MOUTHWASH (Unknown Dose ) PO 4XDAILY ABD (Reported) Fluticasone Propionate 50 MCG/ACTUATION SPRAY.SUSP 1 SPRAY NASB PRN ALLERGIES (Reported) Ibuprofen 600 MG TABLET 1 TAB PO TID PRN PAIN/INFLAMMATION (Reported) with food Levothyroxine Sodium (Synthroid) 25 MCG TABLET 1 TAB PO DAILY AC THYROID ( Reported) Selenium Sulfide 2.5 % SHAMPOO 1 PATRICIA TOP PRN SCALP (Reported) Sulfamethoxazole/Trimethoprim (Bactrim Ds Tablet) 800 MG-160 MG TABLET 1 TAB PO BID cellulitis Past History Travel History Traveled to [place] past 21 day No Medical History Blood Transfusion Hx: No Neurological: NONE EENT: NONE Cardiovascular: NONE Respiratory: asthma Gastrointestinal: NONE Hepatic: NONE Renal: NONE Musculoskeletal: NONE Psychiatric: NONE Endocrine: hypothyroidism Blood Disorders: NONE Cancer(s): NONE RELIGION TEACHER/Reproductive: NONE Other Medical Hx: Right flank abscess at [facility] Isolation History: Standard Surgical History Surgical History: , breast reduction Family History Relations & Conditions If Any: MOTHER (Diabetes, hypertension). BROTHER (Diabetes). . Psychosocial History Where Do You Live? Home Smoking Status: Current Some Day Smoker ETOH Use: denies use Illicit Drug Use: denies illicit drug use Functional Ability ADLs Independent: dressing, eating, toileting, bathing. Ambulation: independent IADLs Independent: shopping, housework, finances, food prep, telephone, transportation , medication admin. Review of Systems Review of Systems All Other Systems: Reviewed and Negative Exam & Diagnostic Data Last 24 Hrs of Vital Signs/I&O Vital Signs Date Time Temp Pulse Resp B/P B/P Pulse O2 O2 Flow FiO2 Mean Ox Delivery Rate 10/16 1453 98.4 70 22 134/57 98 Room Air 10/16 0637 98.7 86 18 106/63 100 10/16 0044 98.7 69 18 114/69 100 10/15 2219 97.8 92 18 116/78 99 Room Air 10/15 1954 99.2 68 20 114/62 98 Intake & Output 10/16 1600 10/16 0800 10/16 0000 Intake Total 842 0 Output Total Balance 842 0 Intake, IV 370 Intake, Oral 472 0 Patient 138 lb Weight Weight Reported by Patient Measurement Method Physical Exam Other Physical Findings: Afebrile. She is awake and alert in no acute distress. Skin reveals no rash. HEENT negative. Neck is supple with no adenopathy. Lungs are clear. Heart regular rhythm with no murmur. Abdomen suprapubic erythema with a fluctuant area noted, with some drainage, exquisitely tender to palpation; positive bowel sounds. Back no CVA tenderness. Extremities no cyanosis, clubbing or edema. Neuro is without focality. Last 24 Hours of Lab Results: Laboratory Tests 10/15 Chemistry Sodium (137 - 145 mmol/L) 138 Potassium (3.5 - 5.1 mmol/L) 4.2 Chloride (98 - 107 mmol/L) 102 Carbon Dioxide (22 - 30 mmol/L) 24 Anion Gap (5 - 16) 12 BUN (7 - 17 mg/dL) 11 Creatinine (0.5 - 1.0 mg/dL) 0.7 Estimated GFR (>60 ml/min) > 60 BUN/Creatinine Ratio (7 - 25 %) 15.7 Glucose (65 - 99 mg/dL) 83 Calcium (8.4 - 10.2 mg/dL) 10.1 Total Bilirubin (0.2 - 1.3 mg/dL) 0.5 AST (14 - 36 U/L) 25 ALT (9 - 52 U/L) 43 Alkaline Phosphatase (<127 U/L) 67 Total Protein (6.3 - 8.2 g/dL) 8.2 Albumin (3.5 - 5.0 g/dL) 4.8 Globulin (1.9 - 4.2 gm/dL) 3.4 Albumin/Globulin Ratio (1.1 - 2.2 %) 1.4 Total Beta HCG (NEGATIVE) NEGATIVE Hematology CBC w Diff NO MAN DIFF REQ WBC (4.8 - 10.8 /CUMM) 8.1 RBC (4.20 - 5.40 /CUMM) 4.57 Hgb (12.0 - 16.0 G/DL) 14.1 Hct (37 - 47 %) 42.1 MCV (81.0 - 99.0 FL) 92.3 MCH (27.0 - 31.0 PG) 30.9 MCHC (33.0 - 37.0 G/DL) 33.5 RDW (11.5 - 14.5 %) 14.3 Plt Count (130 - 400 /CUMM) 360 MPV (7.4 - 10.4 FL) 7.4 Gran % (42.2 - 75.2 %) 60.3 Lymphocytes % (20.5 - 51.1 %) 30.0 Monocytes % (1.7 - 9.3 %) 7.5 Eosinophils % (0 - 5 %) 1.9 Basophils % (0.0 - 2.0 %) 0.3 Absolute Granulocytes (1.4 - 6.5 /CUMM) 4.9 Absolute Lymphocytes (1.2 - 3.4 /CUMM) 2.4 Absolute Monocytes (0.10 - 0.60 /CUMM) 0.6 Absolute Eosinophils (0.0 - 0.7 /CUMM) 0.1 Absolute Basophils (0.0 - 0.2 /CUMM) 0 Urines Urine Color (YEL,AMB,STR) YEL Urine Clarity (CLEAR) CLEAR Urine pH (5.0 - 8.0) 6.0 Ur Specific Mustang (1.001 - 1.035) >= 1.030 Urine Protein (NEG,<30 MG/DL) NEG Urine Ketones (NEG) NEG Urine Nitrite (NEG) NEG Urine Bilirubin (NEG) NEG Urine Urobilinogen (0.1 - 1.0 EU/dl) 0.2 Ur Leukocyte Esterase (NEG) NEG Ur Microscopic SEDIMENT EXAMINED Urine RBC (0 - 5 /HPF) FEW H Urine WBC (0 - 2 /HPF) RARE Ur Epithelial Cells (NONE,FEW) FEW Urine Bacteria (NEG/NONE) RARE H Urine Hemoglobin (NEG) SMALL H Urine Glucose (N MG/DL) NEG Last 24 Hours of Matt Results: Blood cultures October 15 negative Diagnostic Data Recent Imaging Findings: CT of the pelvis October 15 reveals edema and skin thickening at the central anterior lower pelvis with no abscess Assessment/Plan Assessment/Plan Impression: This is a 47-year-old woman with a history of a previous right back abscess, treated at [facility], admitted with persistent suprapubic inflammation despite 5 days of Bactrim, found to be afebrile with a normal white blood cell count and with a CT of the pelvis negative for any abscess. She does have a fluctuant, localized swelling in the suprapubic area, suggestive of a localized abscess, in addition to a surrounding cellulitis, and agree with Surgery that she would benefit from an I&D. Given her history of a previous abscess, the possibility of MRSA must be considered, though she has been on Bactrim for the past 5 days, which should have covered this organism. Unasyn may provide additional coverage, particularly for beta-hemolytic strep, as well as anaerobes and can be continued pending culture from the I&D. Suggestion: 1. Await I&D by Surgery 2. Follow-up the culture from the I&D 3. Decrease Unasyn to 1.5 g IV every 6 hours pending above 4. Continue Vancomycin pending above Melvi Hammond MD will be covering until October 26 Consult Acknowledgment - Thank you for your consult request.
--- NOTE | 2017-10-16 16:25 | Procedure ---
Minor Surgical Procedure Note Date of Procedure: 10/16/17 Procedure Note: After verbal consent, patient was sedated with 2 mg of IV Ativan. The abscess was prepped and draped. One percent lidocaine plain was used for local anesthesia. Patient was very intolerant to any kind of manipulation of the skin. This was primarily due to her severe anxiety. 2 small incisions were made over the fluctuance. Mostly bloody fluid was evacuated. Very little purulence was seen if any at all. One of the cavities extended approximately 2 cm in depth. There is no significant retained purulence. No culture was taken. Patient could not tolerate packing of the wound. I feel it is probably not necessary. Continue IV antibiotics.
[2017-10-16 17:25] VITALS: BP 125/58; BP 126/58
[2017-10-16 21:24] VITALS: BP 116/70
[2017-10-17 06:23] VITALS: BP 116/64
--- NOTE | 2017-10-17 10:26 | PN- General Surgery ---
Surgical Brief Attending Note Brief Attending Note: cellulitis improved. no recs.
--- NOTE | 2017-10-17 12:19 | PN- Housestaff ---
Wing Calderon 10/17/17 1219: Subjective Follow-up For: Inguinal abscess Complaints: no complaints Subjective: Reviewed the patient seated comfortably on the bed she reports to have slept well. She denies any fevers or chills overnight. She is reporting remarkable improvement in her groin area which was very tender yesterday. She reports feeling nauseated when she takes Percocet and do not like to take the medication anymore. Review of Systems Constitutional: Denies: chills, fever. Cardiovascular: Denies: chest pain, palpitations. Respiratory: Denies: cough, short of breath. Gastrointestinal: Reports: nausea. Denies: abdominal pain, vomiting. Genitourinary: Denies: no symptoms. Musculoskeletal: Denies: no symptoms. Objective Last 24 Hrs of Vital Signs/I&O Vital Signs Date Time Temp Pulse Resp B/P B/P Pulse O2 O2 Flow FiO2 Mean Ox Delivery Rate 10/17 1214 98.0 10/17 0623 97.8 62 20 116/64 96 10/16 2124 97.6 73 16 116/70 93 Room Air 10/16 1725 98.1 76 18 126/58 96 Room Air Room Air Intake & Output 10/17 1600 10/17 0800 10/17 0000 Intake Total 1250 Output Total 350 Balance 1250 -350 Intake, IV 450 Intake, Oral 800 Number 0 Bowel Movements Output, 350 Emesis Physical Exam General Appearance: Alert, Oriented X3, Cooperative, No Acute Distress Skin: No Rashes, INCised inguinal wound Skin Temp/Moisture Exam: Warm/Dry Sepsis Skin Exam (color): Normal for Ethnicity HEENT: Atraumatic, Mucous Membr. moist/pink Neck: Supple, No JVD Lungs: Clear to Auscultation, Normal Air Movement Abdomen: Normal Bowel Sounds, Soft, No Tenderness, Scar from abcess drained on the right groin Neurological: Normal Speech, Strength at 5/5 X4 Ext Extremities: No Clubbing, No Cyanosis, No Edema Current Medications: Current Medications Sig/Maxine Start time Last Medication Dose Route Stop Time Status Admin Acetaminophen 1,000 MG Q6P PRN 10/17 1445 AC N/A 1 UNIT IV Acetaminophen 650 MG Q6P PRN 10/16 0230 AC PO Ampicillin Sodium/ 1,500 MG Q6H 10/16 2030 AC 10/17 Sulbactam Sodium IV 1400 Sodium Chloride 100 ML Ampicillin Sodium/ 0 .STK-MED ONE 10/16 1514 DC Sulbactam Sodium .ROUTE Ampicillin Sodium/ 3,000 MG Q6H 10/16 0830 DC 10/16 Sulbactam Sodium IV 10/16 2029 1521 Sodium Chloride 100 ML Budesonide/ 2 PUF BID 10/16 1000 AC 10/17 Formoterol Fumarate INH 0954 Heparin Sodium 5,000 UNIT Q8 10/16 0600 AC 10/17 (Porcine) SC 1404 Ibuprofen 600 MG Q6P PRN 10/16 0230 AC PO Levothyroxine Sodium 0.025 MG DAILY AC 10/16 0700 AC 10/17 PO 0615 Lidocaine 0 .STK-MED ONE 10/16 1607 DC .ROUTE Lorazepam 2 MG ONE ONE 10/16 1615 DC 10/16 IV 10/16 1616 1621 Lorazepam 0 .STK-MED ONE 10/16 1607 DC .ROUTE Nicotine 7 MG DAILY 10/16 1000 AC TOP Ondansetron HCl 4 MG Q6P PRN 10/16 1930 AC 10/17 IV 1156 Oxycodone/ 0 .STK-MED ONE 10/16 1523 DC Acetaminophen PO Oxycodone/ 0 .STK-MED ONE 10/16 1522 DC Acetaminophen PO Oxycodone/ 2 TAB Q6P PRN 10/16 0230 DC 10/16 Acetaminophen PO 1522 Vancomycin HCl 1,000 MG BID 10/16 1000 AC 10/17 Dextrose/Water 250 ML IV 0953 Last 24 Hrs of Lab/Matt Results Last 24 Hrs of Labs/Mics: Laboratory Tests 10/17/17 1230: CBC w Diff NO MAN DIFF REQ, RBC 4.30, MCV 92.7, MCH 30.5, MCHC 32.9 L, RDW 14.1 , MPV 7.9, Gran % 54.2, Lymphocytes % 33.3, Monocytes % 10.1 H, Eosinophils % 1.9, Basophils % 0.5, Absolute Granulocytes 3.6, Absolute Lymphocytes 2.2, Absolute Monocytes 0.7 H, Absolute Eosinophils 0.1, Absolute Basophils 0 Microbiology 10/17 1504 TRUNK: Surveillance Culture - ORD 10/17 1451 UPPER RESP: Surveillance Culture - ORD 10/17 1432 TRUNK: Culture & Sensitivity - ORD 10/17 1432 TRUNK: Gram Stain - ORD 10/17 1432 UPPER RESP: Surveillance Culture - ORD Assessment/Plan Assessment: This is 47-year-old female with a medical history of asthma, hypothyroidism. Presented to the emergency department for further evaluation for her right pubic area cellulitis/abscess. Found to have pus accumulation and a harder incision and drainage by the surgical team. Right pubic cellulitis/abscess Patient started on IV vancomycin and Unasyn overnight the patient has remained afebrile. She reports significant improvement of pain around the incision site. So far blood cultures are negative Patient was seen by ID ux consultant and advised to continue with antibiotic but also to do MRSA some violence with samples from the nostril and groin area. We will check trough level vancomycin tomorrow at 9 AM. Continue with antibiotics. Hypothyroidism Patient is currently symptomatic Tinea with home dose levothyroxine 0.025 mg daily. Pain management Initially patient had severe pain but reports remarkable improvement after incision and drainage. She is citing nausea caused by Percocet and will hold Percocet and keep the patient on IV acetaminophen for severe pain. Continue with pain medication. DVT prophylaxis Heparin 5000 international units every 8 Problem List: 1. Cellulitis 2. Skin abscess Pain Ratin Pain Location: Inguinal area Pain Goal: Pain 4 or less Pain Plan: Tylenol or ibuprofen and IV tynelol Tomorrow's Labs & Rationales: Vancomycin trough level DVT/Prophylaxis: pharmacological Mamadou Daniels 10/17/17 1819: Attending MD Review Statement Attending Statement Attending MD Statement: examined this patient, discuss w/resident/PA/SOLID WASTE MANAGEMENT ENGINEER, agreed w/resident/PA/SOLID WASTE MANAGEMENT ENGINEER, reviewed EMR data (avail), discussed with nursing, discussed with case mgmt Attending Assessment/Plan: ID consult appreciated. cont current abx for now. will f/u on surveillance cultures.
[2017-10-17 14:06] LABS: ABSOLUTE BASOPHIL COUNT 0 /CUMM (0.0-0.2); ABSOLUTE EOSINOPHIL COUNT 0.1 /CUMM (0.0-0.7); ABSOLUTE GRANULOCYTE CT 3.6 /CUMM (1.4-6.5); ABSOLUTE LYMPH COUNT 2.2 /CUMM (1.2-3.4); ABSOLUTE MONOCYTE COUNT 0.7 /CUMM (0.10-0.60); BASOPHIL % 0.5 % (0.0-2.0); EOSINOPHIL % 1.9 % (0-5); GRANULOCYTE % 54.2 % (42.2-75.2); HEMATOCRIT 39.9 % (37-47); MEAN CORPUSCULAR HGB 30.5 PG (27.0-31.0); MEAN CORPUSCULAR HGB CONC 32.9 G/DL (33.0-37.0); MEAN CORPUSCULAR VOLUME 92.7 FL (81.0-99.0); MEAN PLATELET VOLUME 7.9 FL (7.4-10.4); PLATELET COUNT 294 /CUMM (130-400); RBC DISTRIBUTION WIDTH 14.1 % (11.5-14.5); WHITE BLOOD CELL COUNT 6.6 /CUMM (4.8-10.8)
--- NOTE | 2017-10-17 14:06 | PN- Infect Dx ---
Subjective Subjective: No fever; abd discomfort, SS drainage (scant) at the site of the I&D (no cx obtained) Review of Systems Comments: 12 points reviewed as noted, otherwise negative. Objective Last 24 Hrs of Vital Signs/I&O Vital Signs Date Time Temp Pulse Resp B/P B/P Pulse O2 O2 Flow FiO2 Mean Ox Delivery Rate 10/17 1214 98.0 10/17 0623 97.8 62 20 116/64 96 10/16 2124 97.6 73 16 116/70 93 Room Air 10/16 1725 98.1 76 18 126/58 96 Room Air Room Air 10/16 1453 98.4 70 22 134/57 98 Room Air Intake & Output 10/17 1600 10/17 0800 10/17 0000 Intake Total Output Total 350 Balance -350 Output, 350 Emesis Physical Exam Other Physical Findings: Afebrile. She is awake and alert in no acute distress. Skin reveals no rash. HEENT negative. Neck is supple with no adenopathy. Lungs are clear. Heart regular rhythm with no murmur. Abdomen suprapubic w/ much improved erythema and tenderness to palpation; dressing in place at the I&D site; positive bowel sounds. Back no CVA tenderness. Extremities no cyanosis, clubbing or edema. Neuro is without focality. Results Last 24 Hours of Lab Results: Laboratory Tests 10/17 1230 Hematology CBC w Diff Pending WBC Pending RBC Pending Hgb Pending Hct Pending MCV Pending MCH Pending MCHC Pending RDW Pending Plt Count Pending MPV Pending Last 24 Hours of Matt Results: SPEC #: [id number] NEELA: 10/15/17 STATUS: RES RECD: 10/15/17 [facility] DR: Evelyn Zambrano SOURCE: BLOOD ENTR: 10/15/[address] [facility] [address]: Kamini Kessler SPDESC: 2ND/VENOUS ORDERED: BLOOD CULTURE Procedure Result > BLOOD CULTURE REPORT Preliminary 10/16/17 No growth after 1 day incubation. Specimen is examined continuously for 5 days before final report unless culture becomes positive. Recent Imaging Studies: FINDINGS: PELVIS: There is edema and thickening in the skin at the central lower pelvis. No abscess. No focal fluid collection. No air in the soft tissue. No intrapelvic abnormality. The abdominal muscle is normal. The visualized bowel loops are unremarkable. The appendix is normal. The uterus is anteverted. Hypodensity in the right adnexa right ovarian follicle or cyst measuring 3.7 x 2 x 2.3 cm. OSSEOUS STRUCTURES: Vacuum disc phenomenon L5-S1 with endplate spurring of the vertebrae. IMPRESSION: 1. Edema and skin thickening at the central anterior lower pelvis. No abscess. DICTATED BY: River Max MD DATE/TIME DICTATED:10/15/172302 [employer] LIEUTENANT:TEGAN DATE/TIME TRANSCRIBED:10/15/172302 Assessment/Plan ID Impression: This is a 47-year-old woman with a history of a previous right back abscess, treated at [facility], admitted with persistent suprapubic cellulitis, failing treatment with oral Bactrim (received for 5 d). She is afebrile, with a normal white blood cell count and with a CT of the pelvis negative for abscess. Given her history of a previous abscess, the possibility of MRSA must be considered; Unasyn added for additional coverage, particularly for beta- hemolytic Strep and anaerobes. Suggestion: 1. Obtain nasal and inguinal MRSA surv cx. If negative plan to d/c iv Vancomycin. 2. Cont Unasyn to 1.5 g IV every 6 hours and iv Vancomycin pending above; vancomycin trough 30 min before next dose 10/18. Goal vancomycin trough 10-15.
[2017-10-17 15:03] VITALS: BP 100/76
[2017-10-18 06:47] VITALS: BP 118/84
--- NOTE | 2017-10-18 08:18 | PN- Housestaff ---
Medhat Roy MD,Ami 10/18/17 0818: Subjective Follow-up For: Pubic cellulitis/abscess Subjective: Patient visited today, was sitting at the bedside comfortably in no acute distress, was alert and oriented. Examined in presence of nurse. I and D performed, currently significant improvement in erythema and swelling. No fever or chills, no shortness of breathing, no chest pain, no other events. Increased the dose of vancomycin, and changed Unasyn to by mouth Augmentin. Review of Systems Constitutional: Reports: see HPI. Objective Last 24 Hrs of Vital Signs/I&O Vital Signs Date Time Temp Pulse Resp B/P B/P Pulse O2 O2 Flow FiO2 Mean Ox Delivery Rate 10/18 1514 98.1 63 18 116/74 99 Room Air 10/18 0647 98.6 60 20 118/84 96 Intake & Output 10/18 1600 10/18 0800 10/18 0000 Intake Total 1250 500 Output Total Balance 1250 500 Intake, IV 450 Intake, Oral 800 500 Physical Exam General Appearance: Alert, Oriented X3, Cooperative, No Acute Distress Skin: improved swelling and redness of the pubic cellulitis/abscess Skin Temp/Moisture Exam: Warm/Dry Sepsis Skin Exam (color): Normal for Ethnicity HEENT: Atraumatic, EOMI, Mucous Membr. moist/pink Cardiovascular: Regular Rate, Normal S1, Normal S2 Lungs: Clear to Auscultation, Normal Air Movement Abdomen: Soft, No Tenderness Neurological: Normal Speech Extremities: No Edema Current Medications: Current Medications Sig/Maxine Start time Last Medication Dose Route Stop Time Status Admin Acetaminophen 650 MG .STK-MED ONE 10/17 2204 DC PO 10/17 2206 Acetaminophen 1,000 MG Q6P PRN 10/17 1445 AC N/A 1 UNIT IV Acetaminophen 650 MG Q6P PRN 10/16 0230 AC PO Amoxicillin/ 875 MG Q12 10/18 1538 AC Clavulanate Potassium PO Ampicillin Sodium/ 1,500 MG Q6H 10/16 2030 DC 10/18 Sulbactam Sodium IV 1407 Sodium Chloride 100 ML Budesonide/ 2 PUF BID 10/16 1000 AC 10/18 Formoterol Fumarate INH 0911 Heparin Sodium 5,000 UNIT Q8 10/16 0600 AC 10/18 (Porcine) SC 1407 Ibuprofen 600 MG Q6P PRN 10/16 0230 AC PO Levothyroxine Sodium 0.025 MG DAILY AC 10/16 0700 AC 10/18 PO 0525 Nicotine 7 MG DAILY 10/16 1000 AC TOP Ondansetron HCl 4 MG Q6P PRN 10/16 1930 AC 10/17 IV 1156 Vancomycin HCl 1,250 MG BID 10/18 2200 AC Dextrose/Water 250 ML IV Vancomycin HCl 1,000 MG BID 10/16 1000 AC 10/18 Dextrose/Water 250 ML IV 10/18 2159 1012 Last 24 Hrs of Lab/Matt Results Last 24 Hrs of Labs/Mics: Laboratory Tests 10/18/17 0850: Vancomycin Trough 7.6 L Assessment/Plan Assessment: This is 47-year-old female with a medical history of asthma, hypothyroidism. Presented to the emergency department for further evaluation for her right pubic area cellulitis/abscess. Found to have pus accumulation and a harder incision and drainage by the surgical team. Right pubic cellulitis/abscess Patient started on IV vancomycin and Unasyn overnight the patient has remained afebrile. She reports significant improvement of pain around the incision site. So far blood cultures are negative Patient was seen by ID compliance consultant and advised to continue with antibiotic but also to do MRSA some violence with samples from the nostril and groin area. Continue with antibiotics. - Augmentin PO - IV vanc increased to 1.25 Hypothyroidism Patient is currently symptomatic Tinea with home dose levothyroxine 0.025 mg daily. Pain management Initially patient had severe pain but reports remarkable improvement after incision and drainage. She is citing nausea caused by Percocet and will hold Percocet and keep the patient on IV acetaminophen for severe pain. -Continue with pain medication. DVT prophylaxis, Heparin and ALPS Problem List: 1. Cellulitis 2. Skin abscess Pain Ratin Pain Location: Pubic area with touch, not at time of interview Pain Goal: Pain 4 or less Pain Plan: Continue current plan Tomorrow's Labs & Rationales: CBC BEP Mamadou Daniels 10/18/17 1642: Attending MD Review Statement Attending Statement Attending MD Statement: examined this patient, discuss w/resident/PA/JOB PRESS OPERATOR, agreed w/resident/PA/JOB PRESS OPERATOR, reviewed EMR data (avail), discussed with nursing Attending Assessment/Plan: Appreciated ID input- increased vancomycin dose and dced iv unasyn and changed to po augmentin. f/u on cultures and possible dc after results back tomorrow.
--- NOTE | 2017-10-18 13:37 | PN- Infect Dx ---
Subjective Subjective: No fever; feeling better. Review of Systems Comments: 12 points reviewed as noted, otherwise negative Objective Last 24 Hrs of Vital Signs/I&O Vital Signs Date Time Temp Pulse Resp B/P B/P Pulse O2 O2 Flow FiO2 Mean Ox Delivery Rate 10/18 0647 98.6 60 20 118/84 96 10/17 1503 98.2 71 18 100/76 99 Intake & Output 10/18 1600 10/18 0800 10/18 0000 Intake Total 500 Output Total Balance 500 Intake, Oral 500 Physical Exam Other Physical Findings: Afebrile. She is awake and alert in no acute distress. Skin reveals no rash. HEENT negative. Neck is supple with no adenopathy. Lungs are clear. Heart regular rhythm with no murmur. Abdomen suprapubic w/ much improved erythema and tenderness to palpation; dressing in place at the I&D site; positive bowel sounds. Back no CVA tenderness. Extremities no cyanosis, clubbing or edema. Neuro is without focality. Results Last 24 Hours of Lab Results: Laboratory Tests 10/18 0850 Toxicology Vancomycin Trough (10.0 - 20.0 ug/mL) 7.6 L Last 24 Hours of Matt Results: SPEC #: [id number] NEELA: 10/17/17 STATUS: COLB RECD: - SUBM DR: Wing Calderon MD SOURCE: TRUNK ENTR: 10/17/[address]: Maria Dolores MITCHELL,Ninfa SPDESC: GROIN LEFT Marge VASQUEZ,Kamini Garcia MD, [facility] ORDERED: TRUNK CULTURE COMMENT: PER - IS MRSA SCREEN Recent Imaging Studies: Reviewed CT pelvis 10/15. Assessment/Plan ID Impression: 47-year-old female with a medical history of asthma, hypothyroidism, and previous right back abscess, treated at [facility], admitted with persistent suprapubic cellulitis/abscess D#2 s/p I&D. She is afebrile, with a normal white blood cell count and with a CT of the pelvis negative for abscess. Given her history of a previous abscess, the possibility of MRSA must be considered; Unasyn added for additional coverage, particularly for beta- hemolytic Strep and anaerobes. Suggestion: 1. F/U nasal and inguinal MRSA surv cx. If negative plan to d/c iv Vancomycin. 2. As trough subtherapeutic increase Vancomycin 1.25 gm q 12 h; goal vancomycin trough 10-15. 3. D/C Unasyn to 1.5 g IV every 6 h and start oral Augmentin 875 mg po bid.
[2017-10-18 15:14] VITALS: BP 116/74
--- NOTE | 2017-10-18 15:25 | PN- General Surgery ---
Surgical Brief Attending Note Brief Attending Note: CONTINUED IMPROVEMENT. OK FOR D/C. IF INFECTION RECURS, SHE SHOULD F/U WITH ME IN THE OFFICE.
[2017-10-18 21:49] VITALS: BP 108/78
--- NOTE | 2017-10-19 06:39 | PN- Housestaff ---
Medhat Roy MD,[facility] 10/19/17 0639: Subjective Follow-up For: Pubic cellulitis/abscess MRSA positive Subjective: Patient visited today, was lying in bed comfortably in no acute distress, was alert and oriented. Reported significant improvement in pain and swelling. No fever or chills, no shortness of breathing, no chest pain, no other events. MRSA from nasal surveilance was positive. we will continue IV vanc and oral augmentin per ID. Will follow tomorrow for possible discharge. Review of Systems Constitutional: Reports: see HPI. Objective Last 24 Hrs of Vital Signs/I&O Vital Signs Date Time Temp Pulse Resp B/P B/P Pulse O2 O2 Flow FiO2 Mean Ox Delivery Rate 10/19 0646 97.9 71 20 112/70 97 10/18 2149 98.1 62 18 108/78 97 Room Air Intake & Output 10/19 1600 10/19 0800 10/19 0000 Intake Total 1050 530 Output Total Balance 1050 530 Intake, IV 250 50 Intake, Oral 800 480 Number 0 Bowel Movements Physical Exam General Appearance: Alert, Oriented X3, Cooperative, No Acute Distress Skin: improved swelling and redness of pubic cellulitis Skin Temp/Moisture Exam: Warm/Dry Sepsis Skin Exam (color): Normal for Ethnicity HEENT: Atraumatic, EOMI, Mucous Membr. moist/pink Cardiovascular: Normal S1, Normal S2 Lungs: Clear to Auscultation, Normal Air Movement Abdomen: Soft, No Tenderness Neurological: Normal Speech, Strength at 5/5 X4 Ext Extremities: No Edema Current Medications: Current Medications Sig/Maxine Start time Last Medication Dose Route Stop Time Status Admin Acetaminophen 1,000 MG Q6P PRN 10/17 1445 AC N/A 1 UNIT IV Acetaminophen 650 MG Q6P PRN 10/16 0230 AC PO Amoxicillin/ 875 MG Q12 10/18 1538 AC 10/19 Clavulanate Potassium PO 0915 Budesonide/ 2 PUF BID 10/16 1000 AC 10/19 Formoterol Fumarate INH 0915 Heparin Sodium 5,000 UNIT Q8 10/16 0600 AC 10/19 (Porcine) SC 1341 Ibuprofen 600 MG Q6P PRN 10/16 0230 AC PO Levothyroxine Sodium 0.025 MG DAILY AC 10/16 0700 AC 10/19 PO 0606 Nicotine 7 MG DAILY 10/16 1000 AC TOP Ondansetron HCl 4 MG Q6P PRN 10/16 1930 AC 10/17 IV 1156 Vancomycin HCl 1,250 MG BID 10/18 2200 AC 10/19 Dextrose/Water 250 ML IV 1053 Vancomycin HCl 1,000 MG BID 10/16 1000 DC 10/18 Dextrose/Water 250 ML IV 10/18 2159 1012 Last 24 Hrs of Lab/Matt Results Last 24 Hrs of Labs/Mics: Laboratory Tests 10/19/17 0658: Anion Gap 12, Estimated GFR > 60, BUN/Creatinine Ratio 21.7, Glucose 96, Calcium 9.8, Total Bilirubin 0.3, AST 24, ALT 38, Alkaline Phosphatase 57, Total Protein 6.8, Albumin 3.9, Globulin 2.9, Albumin/Globulin Ratio 1.3, CBC w Diff NO MAN DIFF REQ, RBC 4.07 L, MCV 93.2, MCH 31.0, MCHC 33.3, RDW 13.9, MPV 7.9, Gran % 47.8, Lymphocytes % 38.5, Monocytes % 10.1 H, Eosinophils % 3.1, Basophils % 0.5, Absolute Granulocytes 3.1, Absolute Lymphocytes 2.5, Absolute Monocytes 0.7 H, Absolute Eosinophils 0.2, Absolute Basophils 0 Assessment/Plan Assessment: This is 47-year-old female with a medical history of asthma, hypothyroidism. Presented to the emergency department for further evaluation for her right pubic area cellulitis/abscess. Found to have pus accumulation and a harder incision and drainage by the surgical team. Right pubic cellulitis/abscess Patient started on IV vancomycin and Unasyn overnight the patient has remained afebrile. She reports significant improvement of pain around the incision site. So far blood cultures are negative Patient was seen by ID virtualization consultant and advised to continue with antibiotic but also to do MRSA some violence with samples from the nostril and groin area. Continue with antibiotics. - Augmentin PO - IV vanc increased to 1.25 - continue current regiemn per ID Hypothyroidism Patient is currently symptomatic Tinea with home dose levothyroxine 0.025 mg daily. Pain management Initially patient had severe pain but reports remarkable improvement after incision and drainage. She is citing nausea caused by Percocet and will hold Percocet and keep the patient on IV acetaminophen for severe pain. -Continue with pain medication. DVT prophylaxis, Heparin and ALPS Problem List: 1. Skin abscess Pain Ratin Pain Location: None Pain Goal: Pain 4 or less Pain Plan: Continue current plan Tomorrow's Labs & Rationales: CBC BEP Ninfa Whitten 10/19/17 1344: Attending MD Review Statement Attending Statement Attending MD Statement: examined this patient, discuss w/resident/PA/WELL CLEANER, agreed w/resident/PA/WELL CLEANER, discussed with family, reviewed EMR data (avail), discussed with nursing, discussed with case mgmt, reviewed images, amended to note Attending Assessment/Plan: Patient seen/examined bedside. Patient denies any new complaints. Her cellulitis appears to be improving. Abx as per ID, Keep iv vancomycin. Afebrile. Cont current care..
[2017-10-19 06:46] VITALS: BP 112/70
[2017-10-19 09:02] LABS: ABSOLUTE BASOPHIL COUNT 0 /CUMM (0.0-0.2); ABSOLUTE EOSINOPHIL COUNT 0.2 /CUMM (0.0-0.7); ABSOLUTE GRANULOCYTE CT 3.1 /CUMM (1.4-6.5); ABSOLUTE LYMPH COUNT 2.5 /CUMM (1.2-3.4); ABSOLUTE MONOCYTE COUNT 0.7 /CUMM (0.10-0.60); BASOPHIL % 0.5 % (0.0-2.0); EOSINOPHIL % 3.1 % (0-5); GRANULOCYTE % 47.8 % (42.2-75.2); MEAN CORPUSCULAR HGB CONC 33.3 G/DL (33.0-37.0); MEAN CORPUSCULAR VOLUME 93.2 FL (81.0-99.0); MEAN PLATELET VOLUME 7.9 FL (7.4-10.4); PLATELET COUNT 319 /CUMM (130-400); RBC DISTRIBUTION WIDTH 13.9 % (11.5-14.5); RED BLOOD CELL CT 4.07 /CUMM (4.20-5.40); WHITE BLOOD CELL COUNT 6.5 /CUMM (4.8-10.8)
[2017-10-19 15:57] VITALS: BP 108/98
--- NOTE | 2017-10-19 18:00 | PN- Infect Dx ---
Subjective Subjective: Minimal local discomfort; no fever. No n/v/diarrhea. Review of Systems Comments: 12 points reviewed as noted, otherwise negative. Objective Last 24 Hrs of Vital Signs/I&O Vital Signs Date Time Temp Pulse Resp B/P B/P Pulse O2 O2 Flow FiO2 Mean Ox Delivery Rate 10/19 1557 98.1 74 20 108/98 97 Room Air 10/19 0646 97.9 71 20 112/70 97 10/18 2149 98.1 62 18 108/78 97 Room Air Intake & Output 10/19 1600 10/19 0800 10/19 0000 Intake Total 1050 530 Output Total Balance 1050 530 Intake, IV 250 50 Intake, Oral 800 480 Number 0 Bowel Movements Physical Exam Other Physical Findings: Afebrile. She is awake and alert in no acute distress. Skin reveals no rash. HEENT negative. Neck is supple with no adenopathy. Lungs are clear. Heart regular rhythm with no murmur. Abdomen suprapubic w/ minimal erythema and tenderness at the I&D site; positive bowel sounds. Back no CVA tenderness. Extremities no cyanosis, clubbing or edema. Neuro is without focality. Results Last 24 Hours of Lab Results: Laboratory Tests 10/19 0658 Chemistry Sodium (137 - 145 mmol/L) 139 Potassium (3.5 - 5.1 mmol/L) 4.6 Chloride (98 - 107 mmol/L) 103 Carbon Dioxide (22 - 30 mmol/L) 24 Anion Gap (5 - 16) 12 BUN (7 - 17 mg/dL) 13 Creatinine (0.5 - 1.0 mg/dL) 0.6 Estimated GFR (>60 ml/min) > 60 BUN/Creatinine Ratio (7 - 25 %) 21.7 Glucose (65 - 99 mg/dL) 96 Calcium (8.4 - 10.2 mg/dL) 9.8 Total Bilirubin (0.2 - 1.3 mg/dL) 0.3 AST (14 - 36 U/L) 24 ALT (9 - 52 U/L) 38 Alkaline Phosphatase (<127 U/L) 57 Total Protein (6.3 - 8.2 g/dL) 6.8 Albumin (3.5 - 5.0 g/dL) 3.9 Globulin (1.9 - 4.2 gm/dL) 2.9 Albumin/Globulin Ratio (1.1 - 2.2 %) 1.3 Hematology CBC w Diff NO MAN DIFF REQ WBC (4.8 - 10.8 /CUMM) 6.5 RBC (4.20 - 5.40 /CUMM) 4.07 L Hgb (12.0 - 16.0 G/DL) 12.6 Hct (37 - 47 %) 38.0 MCV (81.0 - 99.0 FL) 93.2 MCH (27.0 - 31.0 PG) 31.0 MCHC (33.0 - 37.0 G/DL) 33.3 RDW (11.5 - 14.5 %) 13.9 Plt Count (130 - 400 /CUMM) 319 MPV (7.4 - 10.4 FL) 7.9 Gran % (42.2 - 75.2 %) 47.8 Lymphocytes % (20.5 - 51.1 %) 38.5 Monocytes % (1.7 - 9.3 %) 10.1 H Eosinophils % (0 - 5 %) 3.1 Basophils % (0.0 - 2.0 %) 0.5 Absolute Granulocytes (1.4 - 6.5 /CUMM) 3.1 Absolute Lymphocytes (1.2 - 3.4 /CUMM) 2.5 Absolute Monocytes (0.10 - 0.60 /CUMM) 0.7 H Absolute Eosinophils (0.0 - 0.7 /CUMM) 0.2 Absolute Basophils (0.0 - 0.2 /CUMM) 0 Last 24 Hours of Matt Results: SPEC #: [id number] NEELA: 10/17/17 STATUS: COMP RECD: 10/17/17 [facility] DR: Wing Calderon MD SOURCE: UPPER RESP ENTR: 10/17/17-4442 [facility] DR: Maria Dolores MITCHELL,Ninfa SPDESC: RICHARD VASQUEZ,Kamini Garcia MD, [facility] ORDERED: MRSA SCREEN COMMENT: HAS THE PATIENT BEEN ON ANTIBIOTICS IN THE PAST 72 HOURS? Y Procedure Result > RESISTANT ORG. SURVEILLANCE Final 10/19/17 METH RESIST STAPH AUREUS ISOLATED Called to/Readback by THADDEUS by LATRELL 10/19/17814 Recent Imaging Studies: 47-year-old female with a medical history of asthma, hypothyroidism, and previous right back abscess, treated at [facility], admitted with persistent suprapubic cellulitis/abscess D#2 s/p I&D. She is afebrile, with a normal white blood cell count and with a CT of the pelvis negative for abscess. MRSA colonized; on contact precautions Assessment/Plan ID Impression: 47-year-old female with a medical history of asthma, hypothyroidism, and previous right back abscess, treated at [facility], admitted with persistent suprapubic cellulitis/abscess s/p I&D, clinically improved. She is afebrile, with a normal white blood cell count and with a CT of the pelvis negative for abscess. MRSA colonized; on contact precautions. Suggestion: 1. Continue Vancomycin 1.25 gm q 12 h; goal vancomycin trough 10-15. 2. D/C Augmentin 875 mg po bid. 3. Local care I&D site. 4. Once ready for discharge oral minocycline 100 mg po bid in order to complete total 7-10 days treatmnet. 5. F/u sx as OP.
[2017-10-19 23:14] VITALS: BP 110/66
[2017-10-20 07:46] VITALS: BP 112/78
--- NOTE | 2017-10-20 08:03 | PN- Housestaff ---
Medhat Roy MD,[facility] 10/20/17 0803: Subjective Follow-up For: Cellulitis/abcess Subjective: Patient visited today, was lying in bed comfortably in no acute distress, was alert and oriented. Reported significant improvement in erythema and pain. was requesting to be discharged. No fever or chills, no shortness of breathing, no chest pain, no other events. Will discharge on PO antibiotics. Review of Systems Constitutional: Reports: see HPI. Objective Last 24 Hrs of Vital Signs/I&O Vital Signs Date Time Temp Pulse Resp B/P B/P Pulse O2 O2 Flow FiO2 Mean Ox Delivery Rate 10/20 0746 98.5 72 20 112/78 98 Room Air 10/19 2314 98.3 68 18 110/66 98 Room Air Intake & Output 10/20 1600 10/20 0800 10/20 0000 Intake Total 100 Output Total Balance 100 Intake, IV 100 Physical Exam General Appearance: Alert, Oriented X3, Cooperative, No Acute Distress Skin: improved eythema and swelling of pubic area Sepsis Skin Exam (color): Normal for Ethnicity HEENT: Atraumatic, EOMI, Mucous Membr. moist/pink Cardiovascular: Regular Rate, Normal S1, Normal S2 Lungs: Clear to Auscultation Abdomen: Soft, No Tenderness Neurological: Normal Speech Extremities: No Edema Assessment/Plan Assessment: This is 47-year-old female with a medical history of asthma, hypothyroidism. Presented to the emergency department for further evaluation for her right pubic area cellulitis/abscess. Found to have pus accumulation and a harder incision and drainage by the surgical team. Right pubic cellulitis/abscess Patient started on IV vancomycin and Unasyn at time of admission, the patient has remained afebrile. I and D was performed, She reports significant improvement of pain around the incision site. So far blood cultures are negative MRSA survailance was positive. Patient was discharged on oral Minocycline to complete 10 day total course. Hypothyroidism Patient is currently symptomatic Continued home dose levothyroxine daily. Pain management Initially patient had severe pain but reports remarkable improvement after incision and drainage. Oral anti pain medications were administered. DVT prophylaxis, Heparin and ALPS Problem List: 1. Skin abscess 2. Cellulitis Pain Ratin Pain Location: None Pain Goal: Pain 4 or less Pain Plan: None Tomorrow's Labs & Rationales: DC Discharge Plan Discharge Disposition: home Stable for Discharge? Yes Anticipated Discharge (Day): today Ninfa Whitten 10/20/17 1157: Attending MD Review Statement Attending Statement Attending MD Statement: examined this patient, discuss w/resident/PA/[employer] SYSTEM[employer] MANAGER, agreed w/resident/PA/[employer] MANAGER, discussed with family, reviewed EMR data (avail), discussed with nursing, discussed with case mgmt, reviewed images, amended to note Attending Assessment/Plan: Patient denies any new complaints. Patient medically stable for discharge. PO abx as per ID.
[2017-10-20] MEDS ORDERED: NICOTINE PATCH1 EAC1 TOP ×2 (08:42→10:04)
[2017-10-20] MEDS ORDERED: MINOCYCLINE HC100 M1 PO ×2 (08:42→10:04)
--- NOTE | 2017-10-20 08:47 | Patient Discharge Instructions ---
Discharge Instructions General Discharge Information You were seen/treated for: Cellulitis/skin abscess You had these procedures: I and D of skin abscess Watch for these problems: Severe pain, erythema, discharge, fever, chills, or worsening of any other symptoms Do not soak the wound: No Special Instructions: Please follow with your PCP within one week of discharge. Please follow with your surgeon within one week of discharge symptoms worsen or infection recur. Please come back to hospital if symptoms worsen, please take your medication as ordered. Diet Continue normal diet: Yes Activity Full Activity/No Limits: No Activity Self Limited: Yes Acute Coronary Syndrome Inclusion Criteria At DC or during hospital stay patient has or had the following: ACS DIAGNOSIS No Discharge Core Measures Meds if any: Prescribed or Continued at Discharge Meds if any: NOT Prescribed or Continued at Discharge Congestive Heart Failure Inclusion Criteria At DC or during hospital stay patient has or had the following: CHF DIAGNOSIS No Discharge Core Measures Meds if any: Prescribed or Continued at Discharge Meds if any: NOT Prescribed or Continued at Discharge Cerebrovascular accident Inclusion Criteria At DC or during hospital stay patient has or had the following: CVA/TIA Diagnosis No Discharge Core Measures Meds if any: Prescribed or Continued at Discharge Meds if any: NOT Prescribed or Continued at Discharge Venous thromboembolism Inclusion Criteria VTE Diagnosis No VTE Type NONE VTE Confirmed by (Test) NONE Discharge Core Measures - Per Current guidelines, there needs to be overlap - treatment for the first 5 days of Warfarin therapy. - If discharged on Warfarin prior to 5 days of - overlap therapy, the patient will need to be - assessed for post discharge needs including - *Post discharge parental anticoagulation - *Warfarin and/or parental anticoagulation education - *Follow up date to check INR post discharge At least 5 days overlap therapy as Inpatient No Meds if any: Prescribed or Continued at Discharge Note: Overlap Therapy is Warfarin and Anticoagulant Meds if any: NOT Prescribed or Continued at Discharge
--- NOTE | 2017-10-20 16:25 | Discharge Summary ---
Visit Information Visit Dates Admission Date: 10/15/17 Discharge Date: 10/20/17 Hospital Course Course Attending Physician: Ninfa Whitten MD Primary Care Physician: Kamini Kessler Hospital Course: This is 47-year-old female with a medical history of asthma, hypothyroidism. Presented to the emergency department for further evaluation for her right pubic area cellulitis/abscess. Found to have pus accumulation and a harder incision and drainage by the surgical team. Right pubic cellulitis/abscess Patient started on IV vancomycin and Unasyn at time of admission, the patient has remained afebrile. I and D was performed, She reports significant improvement of pain around the incision site. So far blood cultures are negative MRSA survailance was positive. Patient was discharged on oral Minocycline to complete 10 day total course. Hypothyroidism Patient is currently symptomatic Continued home dose levothyroxine daily. Pain management Initially patient had severe pain but reports remarkable improvement after incision and drainage. Oral anti pain medications were administered. Patient was stable to be discharged with recommendations below. Allergies: Coded Allergies: levothyroxine (HIVES, ITCHING 10/15/17) Significant Procedures: I and D of the pubic cellulitis Disposition Summary Disposition Principal Diagnosis: Right pubic cellulitis/abscess Additional Diagnosis: Chronic medical problem: Hypothyroidism Discharge Disposition: home or self care Discharge Instructions General Discharge Information Code Status: Full Code Patient's Diet: Regular Patient's Activity: As tolerated Follow-Up Instructions/Appts: Please follow with your PCP within one week of discharge. Please follow with your surgeon within one week of discharge symptoms worsen or infection recur. Please come back to hospital if symptoms worsen, please take your medication as ordered. Medications at Discharge Discharge Medications: Stop taking the following medications: Sulfamethoxazole/Trimethoprim (Bactrim Ds Tablet) 800 MG-160 MG TABLET ORAL TWICE DAILY Qty = 14 Continue taking these medications: Levothyroxine Sodium (Synthroid) 25 MCG TABLET 1 Tablet ORAL DAILY BEFORE BREAKFAST Qty = 30 Comments: Last Taken: 10/20/17 Time: 0600 AM Cetirizine HCl (Cetirizine HCl) 10 MG TABLET 1 Tablet ORAL TAKE AT BEDTIME as needed for ALLERGIES Comments: NOT GIVEN IN HOSPITAL Ibuprofen (Ibuprofen) 600 MG TABLET 1 Tablet ORAL THREE TIMES DAILY as needed for PAIN/INFLAMMATION Instructions: with food Comments: NOT GIVEN IN HOSPITAL Fluticasone Propionate (Fluticasone Propionate) 50 MCG/ACTUATION SPRAY.SUSP 1 [place] Both sides of nose as needed for ALLERGIES Qty = 16 Comments: NOT GIVEN IN HOSPITAL Budesonide/Formoterol Fumarate (Symbicort 160-4.5 Mcg Inhaler) 160 MCG-4.5 MCG/ ACTUATION HFA.AER.AD 2 Puff Inhale through mouth TWICE DAILY Qty = 10 Comments: Last Taken: 10/20/17 Time: 1030 AM Albuterol Sulfate (Proair Hfa) 90 MCG HFA.AER.AD 2 Puff Inhale through mouth As Directed as needed for RESP. Qty = 9 Comments: NOT GIVEN IN HOSPITAL Selenium Sulfide (Selenium Sulfide) 2.5 % SHAMPOO 1 Application On the skin as needed for SCALP Qty = 120 Comments: NOT GIVEN IN HOSPITAL Chlorhexidine Gluconate (Periogard) (Unknown Strength) MOUTHWASH Unknown Dose ORAL 4XDAILY Qty = 473 Comments: NOT GIVEN IN HOSPITAL Start taking the following new medications: Minocycline HCl (Minocycline HCl) 100 MG CAPSULE 1 Capsule ORAL TWICE DAILY Qty = 11 No Refills Instructions: . Comments: NOT GIVEN IN HOSPITAL Nicotine (Nicotine Patch) 7 MG/24 HOUR PATCH.TD24 7 Milligram On the skin DAILY Qty = 14 No Refills Instructions: . Comments: NOT GIVEN IN HOSPITAL Copies To: Jose Luis Kessler MD,Mitchell Courtney Attending MD Review Statement Documenting Attending: Ninfa Whitten MD
== END 2017-10-20 12:37 | DRG 385 ==
LOC: ERH 12:49 → ERHI 22:37 → 2NB 22:37 → ERHI 10-16 08:38 → ENRESERV 10-16 16:01 → ENTRNSPT 10-16 16:18 → EDTRNSPT 10-16 16:56 → EDTRNSPTSTS 10-16 16:56 → 2NB 10-16 17:09 → CMPTRNSPT 10-16 17:30 → 2NB 10-19 08:56 → ENPENDDIS 10-20 10:07 → 2NB 10-20 12:37
PROVIDERS: Physician Assistant; Preventive Medicine Public Health & General Preventive Medicine; Radiology Vascular & Interventional Radiology
PROC: 0H9AXZZ Drainage of Inguinal Skin, External Approach (ICD-10-PCS; principal; 2017-10-16)
DX: L73.8 Other specified follicular disorders (principal); L03.314 Cellulitis of groin; L02.214 Cutaneous abscess of groin; E03.9 Hypothyroidism, unspecified; J45.909 Unspecified asthma, uncomplicated; Z72.0 Tobacco use; Z79.51 Long term (current) use of inhaled steroids; Z88.8 Allergy status to other drugs, medicaments and biological substances; Z83.3 Family history of diabetes mellitus; R73.03 Prediabetes; L73.9 Follicular disorder, unspecified; F41.9 Anxiety disorder, unspecified
CPT/HCPCS: 2NBP; 2NBSP; ERO; 36415; 36592; 81001; 82436; 87040; 87070; 87086; 96374; J0131; J1644; J2405; J3370; J3490; J7060

== ENCOUNTER 2018-04-27 15:21 | Emergency (ER) | payer OTHER ==
[~2018-04-27 15:21] MED LIST changes: +CETIRIZINE HCL10 M2 PO; +FLUTICASONE PRO16 GM NASB; +IBUPROFEN600 M1 PO; +MINOCYCLINE HC100 M1 PO; +NICOTINE PATCH1 EAC1 TOP; +PERIOGARD473 ML PO; +PROAIR HFA8.5 GM INH; +SELENIUM SULFI120 M1 TOP; +SYMBICORT 16010.2 GM INH
--- NOTE | 2018-04-27 15:43 | ED GENERAL ADULT ---
History of Present Illness General Chief Complaint: Hand or Wrist Injury Stated Complaint: FALL, C/O L WRIST AND PINKY PAIN Source: patient Exam Limitations: no limitations Vital Signs & Intake/Output Vital Signs & Intake/Output Vital Signs Date Time Temp Pulse Resp B/P B/P Pulse O2 O2 Flow FiO2 Mean Ox Delivery Rate 04/27 1753 97.7 81 15 110/71 97 Room Air Room Air 04/27 1735 Room Air 04/27 1542 109/72 04/27 1539 98.0 90 16 99 Room Air Allergies Coded Allergies: levothyroxine (HIVES, ITCHING 10/15/17) Reconcile Medications Albuterol Sulfate (Proair Hfa) 90 MCG HFA.AER.AD 2 PUF INH AD PRN RESP. ( Reported) Budesonide/Formoterol Fumarate (Symbicort 160-4.5 Mcg Inhaler) 160 MCG-4.5 MCG/ ACTUATION HFA.AER.AD 2 PUF INH BID RESP. (Reported) Cetirizine HCl 10 MG TABLET 1 TAB PO QHS PRN ALLERGIES (Reported) Chlorhexidine Gluconate (Periogard) (Unknown Strength) MOUTHWASH (Unknown Dose ) PO 4XDAILY ABD (Reported) Fluticasone Propionate 50 MCG/ACTUATION SPRAY.SUSP 1 SPRAY NASB PRN ALLERGIES (Reported) Ibuprofen 600 MG TABLET 1 TAB PO TID PRN PAIN/INFLAMMATION (Reported) with food Levothyroxine Sodium (Synthroid) 25 MCG TABLET 1 TAB PO DAILY AC THYROID ( Reported) Minocycline HCl 100 MG CAPSULE 1 CAP PO BID skin infection . Naproxen (Naprosyn) 500 MG TABLET 1 TAB PO BID PRN pain Nicotine (Nicotine Patch) 7 MG/24 HOUR PATCH.TD24 7 MG TOP DAILY Smoking . 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 FELL ONTO LEFT HAND. C/O PAIN/SWELLING TO LEFT HAND AND WRIST. NO OBVIOUS DEFORMITY NOTED. Triage Nurses Notes Reviewed? 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 Pt was at grocery store and slipped in a puddle of water. Struck her left wrist/hand during the fall, thinks she may have hyperextended the wrist. Denies head strike or LOC. Denies numbness or paresthesias. (Palak Marquez) Past History Travel History Traveled to [place] past 21 day No Medical History Any Pertinent Medical History? see below for history Neurological: NONE EENT: NONE Cardiovascular: NONE Respiratory: asthma Gastrointestinal: NONE Hepatic: NONE Renal: NONE Musculoskeletal: NONE Psychiatric: NONE Endocrine: hypothyroidism Blood Disorders: NONE Cancer(s): NONE INTERPERSONAL COMMUNICATIONS PROFESSOR/Reproductive: NONE Other Medical Hx: Right flank abscess at [facility] History of MRSA: Yes History of VRE: No History of CDIFF: No Surgical History Surgical History: non-contributory Psychosocial History Who do you live with Mother What is your primary language [place] Family History Family History, If Any: MOTHER (Diabetes, hypertension). BROTHER (Diabetes). . Hx Contributory? No (Palak Marquez) Review of Systems Review of Systems Constitutional: Reports: no symptoms. EENTM: Reports: no symptoms. Respiratory: Reports: no symptoms. Cardiovascular: Reports: no symptoms. GI: Reports: no symptoms. Genitourinary: Reports: no symptoms. Musculoskeletal: Reports: see HPI. Skin: Reports: no symptoms. Neurological/Psychological: Reports: no symptoms. Hematologic/Endocrine: Reports: no symptoms. Immunologic/Allergic: Reports: no symptoms. All Other Systems: Reviewed and Negative (Palak Marquez) Physical Exam Physical Exam General Appearance: well developed/nourished, no apparent distress, alert, awake Comments: Gen.: Well-nourished, well-developed, no acute distress. Head: Normocephalic, atraumatic. Eyes: Normal inspection bilaterally Ears: Normal inspection bilaterally Nose: Normal inspection Neck: Normal inspection Lungs: clear to auscultation bilaterally, normnal breath sounds Heart: regular rate and rhythm Abdomen: soft and non-tender HAND: left hand/wrist Inspection: normal inspection, no edema or deformity Palpation: TTP over 5th digit and lateral hand/wrist ROM: Unrestricted range of motion at all MCPs/PIPs/DIPs and IP joint, and wrist joint Sensation: intact to median/radial/ulnar nerves Motor strength: 5/5 with digit flexion, extension, interosseous strength, and hand plant operations vice president strength, and wrist flexion, extension, ulnar/radial deviation Cap refill: <2 seconds Pulse: 2+ radial pulse Neurologic: alert and oriented x3, steady gait Skin: warm and dry Psychiatric: Normal mood and affect, no apparent delusions or hallucinations, behavior appropriate Core Measures ACS in differential dx? No CVA/TIA Diagnosis: No Sepsis Present: No Sepsis Focused Exam Completed? No (Palak Marquez) Progress Differential Diagnoses I considered the following diagnoses in my evaluation of the patient: [contusion vs sprain vs dx vs dislocation] Plan of Care: Orders Procedure Date/time Status Durable Medical Equipment 04/27 1743 Active X-ray unremarkable. Likely with a wrist sprain. Placed in a premade thumb spica splint. Given Rx naproxen for pain. Counseled on supportive care and strict return precautions per Initial ED EKG: none (Palak Marquez) Departure Departure Disposition: HOME OR SELF CARE Condition: Stable Clinical Impression Primary Impression: Left wrist sprain Referrals: William MITCHELL,William (PCP/Family) Additional Instructions: Use naproxen as needed for pain. Keep your wrist in the wrist splint to help alleviate pain. Use ice as needed for pain and swelling. Follow-up with your primary care provider for reevaluation. Return to the emergency department for any new or worsening symptoms. Departure Forms: Customer Survey General Discharge Information Prescriptions: Current Visit Scripts Naproxen (Naprosyn) 1 TAB PO BID PRN pain #60 TAB (Palak Marquez) PA/SENIOR NETWORK ARCHITECT Co-Sign Statement Statement: ED Attending supervision documentation- [] I saw and evaluated the patient. I have also reviewed all the pertinent lab results and diagnostic results. I agree with the findings and the plan of care as documented in the PA's/SENIOR NETWORK ARCHITECT's documentation. [X] I have reviewed the ED Record and agree with the PA's/SENIOR NETWORK ARCHITECT's documentation. [] Additions or exceptions (if any) to the PAs/SENIOR NETWORK ARCHITECT's note and plan are summarized below: [] (Mingo Garcia DO) Critical Care Note Critical Care Note Critical Care Time: non-applicable (Palak Marquez)
--- NOTE | 2018-04-27 17:02 | RADIOLOGY REPORT ---
EXAMINATION: LEFT WRIST. LEFT HAND. CLINICAL INFORMATION: Status post fall with pain. Patient also has a history of chronic pain. COMPARISON: Prior examination of same day. TECHNIQUE: Left wrist 4 views. Left hand 3 views. FINDINGS: LEFT WRIST: No fracture, malalignment or other abnormality is demonstrated. Joint spaces are normal and symmetric. LEFT HAND: 3 views of the left hand are also normal. No fracture or malalignment. Joint spaces are normal. IMPRESSION: Unremarkable examination.
[2018-04-27] MEDS ORDERED: NAPROSYN500 M1 PO (17:43)
[2018-04-27 17:53] VITALS: BP 110/71
== END 2018-04-27 17:55 ==
LOC: ERH 15:21
DX: S63.502A Unspecified sprain of left wrist, initial encounter (principal); W01.0XXA Fall on same level from slipping, tripping and stumbling without subsequent striking against object, initial encounter; Y92.512 Supermarket, store or market as the place of occurrence of the external cause; Y93.89 Activity, other specified; J45.909 Unspecified asthma, uncomplicated; E03.9 Hypothyroidism, unspecified
CPT/HCPCS: 73110-LT; 73130-LT